=== PATIENT | female | born 1965 | race Caucasian/White ===

== ENCOUNTER 2021-10-12 21:29 | Inpatient (IN) | payer OTHER, MEDICAID ==
[~2021-10-12] VITALS: Ht 157.5 cm; Wt 57.4 kg
[~2021-10-12 21:29] MED LIST: ACET325T53 PO; ALPHAGAN1 OP; BISA-79 RC; CARB15DR OP; CEL20 PO; CHLO1LIQ2 MC; DORZ10DR10 EACH EYE; HAL5 PO; INSU100I26 SQ; LIP40 PO; LISI10TA29 PO; MELA3TAB41 PO; ONDA4TAB5 PO; SSREG SUBCUT; VITS42.53 TP; XALEYE OP
[2021-10-12] MEDS ORDERED: NACL 0.9% 1,000 ML IV ONE ×2 (21:45→22:45)
[2021-10-12 22:00] VITALS: BP_SYST 160
[2021-10-12 22:12] LABS: HEMATOCRIT 36.7 % (36-48); HEMOGLOBIN 12.1 g/dL (12.0-16.0); MEAN CORPUSCULAR HEMOGLOBIN 30 pg (27-31); MEAN CORPUSCULAR HGB CONC 33 % (32-36); MEAN CORPUSCULAR VOLUME 92 fL (79.0-98.0); PLATELET COUNT (AUTO) 290 K/uL (130-430); RED BLOOD CELL COUNT(AUTO) 3.99 MIL/uL (4.2-6.2); RED CELL DISTRIBUTION WIDTH 14.8 % (9.0-15.0); WHITE BLOOD COUNT (AUTO) 18.5 K/uL (4.8-10.8)
[2021-10-12 22:13] LABS: CALCIUM 9.7 mg/dL (8.4-11.0); CREATININE 1.07 mg/dL (0.55-1.30); POTASSIUM 4.1 mmol/L (3.5-5.1)
[2021-10-12 22:19] LABS: ALBUMIN 3.1 g/dL (3.4-4.8)
[2021-10-12] MEDS ORDERED: VANCOMYCIN HCL 1,000 MG in NS 250 ML IV ONE (22:45)
[2021-10-12 22:47] LABS: TOTAL BILIRUBIN 0.3 mg/dL (0.0-1.0)
[2021-10-12 23:10] LABS: BAND % (MANUAL) 20 % (0-6); BASOPHILS % (MANUAL) 0 % (0-2); EOSINOPHILS % (MANUAL) 0 % (0-7); LYMPHOCYTES % (MANUAL) 2 % (20-46); MONOCYTES % (MANUAL) 7 % (0-11)
[2021-10-12] MEDS ORDERED: VANCOMYCIN HCL 1000 MG/VIAL IV ONE (23:24)
[2021-10-12 23:28] LABS: BILIRUBIN,URINE 1+ (NEGATIVE); BLOOD, URINE NEGATIVE (NEGATIVE); COLOR,URINE YELLOW (YELLOW); GLUCOSE,URINE TRACE (NEGATIVE); KETONES,URINE 1+ (NEGATIVE); LEUKOCYTE ESTERASE ,URINE NEGATIVE (NEGATIVE); NITRITE, URINE NEGATIVE (NEGATIVE); PH,URINE 5.5 (5.0-8.0); PROTEIN URINE TRACE (NEGATIVE)
[2021-10-12] MEDS ORDERED: DIPHENHYDRAMINE INJ 50 MG/ML VIAL IVP ONE (23:45)
[2021-10-12] MEDS ORDERED: HALOPERIDOL LACTATE 5 MG/ML VIAL IVP ONE (23:45)
[2021-10-13] LABS: CLARITY/URINE HAZY (CLEAR)
[2021-10-13 00:15] LABS: BACTERIA,URINE FEW /HPF (None Seen); MUCUS,URINE None Seen /LPF (None Seen); RBC,URINE 0-3 /HPF (0-3); WBC,URINE 0-3 /HPF (0-3)
[2021-10-13] MEDS ORDERED: LORazepam 2 MG/ML VIAL IVP ONE (00:15)
[2021-10-13] MEDS ORDERED: NACL 0.9% 1,000 ML IV SCH ×2 (00:30→02:00)
[2021-10-13] MEDS ORDERED: cefTRIAXone 1 GM IVPB PREMIX 50 ML IV SCH (00:30)
[2021-10-13] MEDS ORDERED: PIOG15TA8 PO (00:31)
[2021-10-13] MEDS ORDERED: ASCO500T20 PO (00:31)
[2021-10-13] MEDS ORDERED: METF-518 PO (00:42)
[2021-10-13] MEDS ORDERED: LITH150C PO (00:43)
[2021-10-13] MEDS ORDERED: LIP80 PO (00:44)
[2021-10-13] MEDS ORDERED: VALP250S3 PO (00:46)
[2021-10-13] MEDS ORDERED: DEXT15LI PO (00:49)
[2021-10-13] MEDS ORDERED: LORA-258 PO (00:58)
[2021-10-13] MEDS ORDERED: BISA10SU61 RC (00:58)
[2021-10-13] MEDS ORDERED: POLY17PO4 PO (01:00)
[2021-10-13] MEDS ORDERED: CALC-939 PO (01:00)
[2021-10-13] MEDS ORDERED: PROC25SU2 RC (01:01)
[2021-10-13] MEDS ORDERED: METO-290 PO (01:06)
[2021-10-13] MEDS ORDERED: DOCU-156 PO (01:07)
[2021-10-13] MEDS ORDERED: MELA10TA2 PO (01:09)
[2021-10-13] MEDS ORDERED: FENO145T24 PO (01:13)
[2021-10-13] MEDS ORDERED: ZIPRASIDONE HCL 20 MG CAPSULE (GEODON) PO ONE (01:15)
[2021-10-13] MEDS ORDERED: DORZ1DRO7 OP (01:15)
[2021-10-13] MEDS ORDERED: QUET200T PO (01:16)
[2021-10-13] MEDS ORDERED: HAL5 PO (01:17)
[2021-10-13] MEDS ORDERED: CEL20 PO (01:18)
[2021-10-13] MEDS ORDERED: INSU100I26 SQ (01:19)
[2021-10-13] MEDS ORDERED: CHOL500013 PO (01:21)
[2021-10-13] MEDS ORDERED: SSREG SUBCUT (01:25)
[2021-10-13] MEDS ORDERED: HALOPERIDOL LACTATE 5 MG/ML VIAL ONE (02:10)
[2021-10-13] MEDS ORDERED: HALOPERIDOL LACTATE 5 MG/ML VIAL IVP ONE (02:15)
[2021-10-13] MEDS ORDERED: DIPHENHYDRAMINE INJ 50 MG/ML VIAL IVP ONE (02:15)
[2021-10-13] MEDS ORDERED: DIPHENHYDRAMINE INJ 50 MG/ML VIAL ONE (02:20)
[2021-10-13] MEDS: LORazepam 2 MG/ML VIAL IVP PRN ×4 (03:31→23:50)
[2021-10-13 04:01] VITALS: BP_SYST 137
[2021-10-13] MEDS ORDERED: PIPERACILLIN/TAZOBACTAM 3.375 GM/VIAL (ZOSYN) IV ONE (04:39)
[2021-10-13] MEDS: PIPERACILLIN/TAZO 3.375/DEX-IS 50 ML IV SCH ×3 (05:40→23:21)
[2021-10-13 08:00] VITALS: BP_SYST 125
[2021-10-13 12:32] VITALS: BP_SYST 150
[2021-10-13] MEDS: VANCOMYCIN HCL 1,000 MG in NS 250 ML IV SCH (12:48)
[2021-10-13 16:15] VITALS: BP_SYST 143
[2021-10-13] MEDS: D5NS 1,000 ML IV SCH (19:37)
[2021-10-13 20:00] VITALS: BP_SYST 135
[2021-10-13] MEDS: VALPROIC ACID ORAL SYRUP 250 MG/5 ML UDC PO SCH (22:15)
[2021-10-13] MEDS: HALOPERIDOL 5 MG TABLET (HALDOL) PO SCH (23:21)
[2021-10-13] MEDS: INSULIN REGULAR, HUMAN 100 UNITS/ML, 10 ML VIAL (humuLIN R) SUBCUT PRN (23:40)
[2021-10-14] VITALS: BP_SYST 142
[2021-10-14] MEDS: LORazepam 2 MG/ML VIAL IVP PRN (03:47)
[2021-10-14] MEDS: INSULIN REGULAR, HUMAN 100 UNITS/ML, 10 ML VIAL (humuLIN R) SUBCUT PRN ×3 (05:58→17:21)
[2021-10-14] MEDS: PIPERACILLIN/TAZO 3.375/DEX-IS 50 ML IV SCH ×3 (06:24→22:30)
[2021-10-14 08:00] VITALS: BP_SYST 142
[2021-10-14 08:14] LABS: BASOPHILS % (AUTO) 0.2 % (0.0-2.0); HEMATOCRIT 33.7 % (36-48); LYMPHOCYTES % (AUTO) 7.2 % (20.5-51.5); MEAN CORPUSCULAR HEMOGLOBIN 30 pg (27-31); MEAN CORPUSCULAR HGB CONC 33 % (32-36); MEAN CORPUSCULAR VOLUME 92 fL (79.0-98.0); MONOCYTES # (AUTO) 1.1 K/uL (0.0-1.0); MONOCYTES % (AUTO) 7.8 % (1.7-9.3); NEUTROPHILS # (AUTO) 11.7 K/uL (1.8-7.7); NEUTROPHILS % (AUTO) 84.8 % (40.0-70.0); PLATELET COUNT (AUTO) 231 K/uL (130-430); RED BLOOD CELL COUNT(AUTO) 3.68 MIL/uL (4.2-6.2); WHITE BLOOD COUNT (AUTO) 13.8 K/uL (4.8-10.8)
[2021-10-14 08:19] LABS: ALBUMIN 2.4 g/dL (3.4-4.8); CALCIUM 7.9 mg/dL (8.4-11.0); CREATININE 0.67 mg/dL (0.55-1.30); PHOSPHORUS 1.9 mg/dL (2.7-4.5); TOTAL BILIRUBIN 0.3 mg/dL (0.0-1.0)
[2021-10-14] MEDS: D5NS 1,000 ML IV SCH (08:20)
[2021-10-14 08:37] LABS: THYROID STIMULATING HORMONE 1.96 uIu/mL (0.34-4.82)
[2021-10-14] MEDS: HALOPERIDOL 5 MG TABLET (HALDOL) PO SCH ×2 (08:50→22:28)
[2021-10-14] MEDS: LISINOPRIL 10 MG TABLET (PRINIVIL) PO SCH (08:53)
[2021-10-14] MEDS: POLYETHYLENE GLYCOL 3350, 17 GM/ POWD.PACK PO SCH (09:00)
[2021-10-14] MEDS: VALPROIC ACID ORAL SYRUP 250 MG/5 ML UDC PO SCH ×2 (09:00→22:27)
[2021-10-14] MEDS: LITHIUM CARBONATE 150 MG CAPSULE PO SCH ×2 (09:00→22:27)
[2021-10-14] MEDS ORDERED: CITALOPRAM HYDROBROMIDE 20 MG TABLET PO SCH (09:00)
[2021-10-14] MEDS: ASCORBIC ACID 500 MG TABLET PO SCH (09:00)
[2021-10-14] MEDS: CALCIUM CARBONATE/VITAMIN D3 1 TAB TABLET PO SCH ×2 (09:00→22:29)
[2021-10-14] MEDS: VANCOMYCIN HCL 1,000 MG in NS 250 ML IV SCH (12:00)
[2021-10-14 12:32] VITALS: BP_SYST 161
[2021-10-14] MEDS: ALBUTEROL SULFATE 0.083% 2.5 MG/3 ML VIAL.NEB INH PRN (14:31)
[2021-10-14] MEDS ORDERED: K PHOS 30 MM in NS 250 ML IV ONE (14:45)
[2021-10-14 16:16] VITALS: BP_SYST 161
[2021-10-14 17:04] VITALS: BP_SYST 128
[2021-10-14 20:00] VITALS: BP_SYST 152
[2021-10-14] MEDS: QUEtiapine FUMARATE 100 MG TABLET PO SCH (22:28)
[2021-10-14] MEDS: ATORVASTATIN 20 MG TABLET PO SCH (22:28)
[2021-10-14] MEDS: LATANOPROST 2.5 ML DROPS (XALATAN) OP SCH (22:30)
[2021-10-15] MEDS ORDERED: K PHOS 30 MM in NS 250 ML IV ONE ×2
[2021-10-15] MEDS: BISACODYL 10 MG/SUPPOSITORY RC PRN (00:13)
[2021-10-15] MEDS: INSULIN REGULAR, HUMAN 100 UNITS/ML, 10 ML VIAL (humuLIN R) SUBCUT PRN ×5 (00:41→23:51)
[2021-10-15] MEDS: ACETAMINOPHEN 325 MG TABLET PO SCH (00:55)
[2021-10-15 02:11] VITALS: BP_SYST 105
[2021-10-15] MEDS: D5NS 1,000 ML IV SCH (04:20)
[2021-10-15] MEDS: PIPERACILLIN/TAZO 3.375/DEX-IS 50 ML IV SCH ×3 (05:54→21:09)
[2021-10-15 07:36] LABS: BASOPHILS % (AUTO) 0.3 % (0.0-2.0); EOSINOPHILS # (AUTO) 0.1 K/uL (0.0-0.4); EOSINOPHILS % (AUTO) 1.4 % (0.0-4.0); HEMATOCRIT 30.6 % (36-48); HEMOGLOBIN 10.2 g/dL (12.0-16.0); LYMPHOCYTES # (AUTO) 1.2 K/uL (1.0-5.5); LYMPHOCYTES % (AUTO) 14.4 % (20.5-51.5); MEAN CORPUSCULAR HEMOGLOBIN 30 pg (27-31); MEAN CORPUSCULAR HGB CONC 33 % (32-36); MEAN CORPUSCULAR VOLUME 90 fL (79.0-98.0); MONOCYTES # (AUTO) 0.8 K/uL (0.0-1.0); MONOCYTES % (AUTO) 9.5 % (1.7-9.3); NEUTROPHILS # (AUTO) 6.3 K/uL (1.8-7.7); NEUTROPHILS % (AUTO) 74.4 % (40.0-70.0); PLATELET COUNT (AUTO) 214 K/uL (130-430); WHITE BLOOD COUNT (AUTO) 8.4 K/uL (4.8-10.8)
[2021-10-15 08:00] VITALS: BP_SYST 117
[2021-10-15 08:06] LABS: CORTISOL (SERUM) 21.5 ug/dL (.)
[2021-10-15] MEDS: LISINOPRIL 10 MG TABLET (PRINIVIL) PO SCH (08:33)
[2021-10-15] MEDS: ASCORBIC ACID 500 MG TABLET PO SCH (08:34)
[2021-10-15] MEDS: VALPROIC ACID ORAL SYRUP 250 MG/5 ML UDC PO SCH ×2 (08:34→21:08)
[2021-10-15] MEDS: HALOPERIDOL 5 MG TABLET (HALDOL) PO SCH (08:34)
[2021-10-15] MEDS: LITHIUM CARBONATE 150 MG CAPSULE PO SCH (08:34)
[2021-10-15] MEDS: CHOLECALCIFEROL (VITAMIN D3) 5,000 UNIT TABLET PO SCH (08:34)
[2021-10-15] MEDS: CALCIUM CARBONATE/VITAMIN D3 1 TAB TABLET PO SCH ×2 (08:35→21:10)
[2021-10-15] MEDS: LORazepam 2 MG/ML VIAL IVP PRN ×4 (08:49→18:31)
[2021-10-15 08:51] LABS: CALCIUM 8.7 mg/dL (8.4-11.0); CREATININE 0.55 mg/dL (0.55-1.30); PHOSPHORUS 3.7 mg/dL (2.7-4.5); POTASSIUM 3.7 mmol/L (3.5-5.1)
[2021-10-15] MEDS: POLYETHYLENE GLYCOL 3350, 17 GM/ POWD.PACK PO SCH (08:52)
[2021-10-15 11:51] VITALS: BP_SYST 112
[2021-10-15 12:05] LABS: HEMOGLOBIN A1C 6.8 % (4.8-5.6)
[2021-10-15] MEDS: VANCOMYCIN HCL 1,000 MG in NS 250 ML IV SCH (12:24)
[2021-10-15 16:02] LABS: LITHIUM 0.22 mEq/L (0.50-1.0)
[2021-10-15 16:45] VITALS: BP_SYST 136
[2021-10-15 20:20] VITALS: BP_SYST 146
[2021-10-15] MEDS ORDERED: HALOPERIDOL 5 MG TABLET (HALDOL) PO SCH (21:00)
[2021-10-15] MEDS: LATANOPROST 2.5 ML DROPS (XALATAN) OP SCH (21:00)
[2021-10-15] MEDS: QUEtiapine FUMARATE 100 MG TABLET PO SCH (21:09)
[2021-10-15] MEDS: ATORVASTATIN 20 MG TABLET PO SCH (21:10)
[2021-10-16] VITALS (8 sets, daily range): BP systolic 125–191
[2021-10-16] MEDS: D5NS 1,000 ML IV SCH (05:20)
[2021-10-16] MEDS: INSULIN REGULAR, HUMAN 100 UNITS/ML, 10 ML VIAL (humuLIN R) SUBCUT PRN ×4 (05:31→23:53)
[2021-10-16] MEDS: LORazepam 2 MG/ML VIAL IVP PRN ×4 (06:35→22:39)
[2021-10-16 07:06] LABS: BASOPHILS % (AUTO) 0.5 % (0.0-2.0); EOSINOPHILS # (AUTO) 0.2 K/uL (0.0-0.4); EOSINOPHILS % (AUTO) 2.1 % (0.0-4.0); HEMATOCRIT 29.6 % (36-48); HEMOGLOBIN 9.9 g/dL (12.0-16.0); LYMPHOCYTES # (AUTO) 1.3 K/uL (1.0-5.5); LYMPHOCYTES % (AUTO) 14.6 % (20.5-51.5); MEAN CORPUSCULAR HEMOGLOBIN 30 pg (27-31); MEAN CORPUSCULAR HGB CONC 33 % (32-36); MEAN CORPUSCULAR VOLUME 90 fL (79.0-98.0); MONOCYTES # (AUTO) 0.8 K/uL (0.0-1.0); MONOCYTES % (AUTO) 9.4 % (1.7-9.3); NEUTROPHILS # (AUTO) 6.4 K/uL (1.8-7.7); NEUTROPHILS % (AUTO) 73.4 % (40.0-70.0); PLATELET COUNT (AUTO) 261 K/uL (130-430); RED BLOOD CELL COUNT(AUTO) 3.27 MIL/uL (4.2-6.2); RED CELL DISTRIBUTION WIDTH 15.3 % (9.0-15.0); WHITE BLOOD COUNT (AUTO) 8.8 K/uL (4.8-10.8)
[2021-10-16 08:38] LABS: CALCIUM 8.8 mg/dL (8.4-11.0); CREATININE 0.55 mg/dL (0.55-1.30); POTASSIUM 3.3 mmol/L (3.5-5.1)
[2021-10-16] MEDS: POLYETHYLENE GLYCOL 3350, 17 GM/ POWD.PACK PO SCH (10:10)
[2021-10-16] MEDS: CALCIUM CARBONATE/VITAMIN D3 1 TAB TABLET PO SCH ×2 (10:11→20:31)
[2021-10-16] MEDS: VALPROIC ACID ORAL SYRUP 250 MG/5 ML UDC PO SCH ×2 (10:11→20:30)
[2021-10-16] MEDS: ASCORBIC ACID 500 MG TABLET PO SCH (10:11)
[2021-10-16] MEDS: LISINOPRIL 10 MG TABLET (PRINIVIL) PO SCH (10:13)
[2021-10-16] MEDS ORDERED: POTASSIUM CHLORIDE 20 MEQ TAB.PRT.SR PO ONE (12:30)
[2021-10-16] MEDS: VANCOMYCIN HCL 1,000 MG in NS 250 ML IV SCH (13:22)
[2021-10-16] MEDS: cloNIDine HCL 0.1 MG TABLET PO PRN ×2 (18:37→22:36)
[2021-10-16] MEDS: ATORVASTATIN 20 MG TABLET PO SCH (20:31)
[2021-10-16] MEDS: LATANOPROST 2.5 ML DROPS (XALATAN) OP SCH (21:00)
[2021-10-16] MEDS: hydrALAZINE HCL 20 MG/ML VIAL IVP PRN (23:42)
[2021-10-17] VITALS (33 sets, daily range): BP systolic 98–222
[2021-10-17] MEDS: ALBUTEROL SULFATE 0.083% 2.5 MG/3 ML VIAL.NEB INH PRN ×2 (01:35→01:37)
[2021-10-17] MEDS: hydrALAZINE HCL 20 MG/ML VIAL IVP PRN (04:22)
[2021-10-17] MEDS: D5NS 1,000 ML IV SCH ×2 (04:40→09:22)
[2021-10-17] MEDS ORDERED: LORazepam 2 MG/ML VIAL IVP PRN (05:00)
[2021-10-17] MEDS: PROPOFOL DRIP 100 ML IV PRN ×2 (05:41→12:18)
[2021-10-17 06:04] LABS: BASOPHILS % (AUTO) 0.3 % (0.0-2.0); EOSINOPHILS # (AUTO) 0.1 K/uL (0.0-0.4); EOSINOPHILS % (AUTO) 0.4 % (0.0-4.0); HEMOGLOBIN 11.6 g/dL (12.0-16.0); LYMPHOCYTES # (AUTO) 0.7 K/uL (1.0-5.5); LYMPHOCYTES % (AUTO) 5.2 % (20.5-51.5); MEAN CORPUSCULAR HEMOGLOBIN 30 pg (27-31); MEAN CORPUSCULAR HGB CONC 33 % (32-36); MEAN CORPUSCULAR VOLUME 90 fL (79.0-98.0); MONOCYTES # (AUTO) 0.8 K/uL (0.0-1.0); MONOCYTES % (AUTO) 5.8 % (1.7-9.3); NEUTROPHILS % (AUTO) 88.3 % (40.0-70.0); PLATELET COUNT (AUTO) 372 K/uL (130-430); RED BLOOD CELL COUNT(AUTO) 3.89 MIL/uL (4.2-6.2); RED CELL DISTRIBUTION WIDTH 15.5 % (9.0-15.0); WHITE BLOOD COUNT (AUTO) 13.6 K/uL (4.8-10.8)
[2021-10-17 06:33] LABS: CALCIUM 9.3 mg/dL (8.4-11.0); CREATININE 0.65 mg/dL (0.55-1.30); POTASSIUM 3.9 mmol/L (3.5-5.1)
[2021-10-17] MEDS: INSULIN REGULAR, HUMAN 100 UNITS/ML, 10 ML VIAL (humuLIN R) SUBCUT PRN ×3 (06:34→17:53)
[2021-10-17] MEDS ORDERED: HEPARIN SODIUM,PORCINE 5,000 UNITS/ML VIAL ONE ×2 (06:35→20:07)
[2021-10-17] MEDS: HEPARIN SODIUM,PORCINE 5,000 UNITS/ML VIAL SUBCUT SCH ×2 (06:35→20:12)
[2021-10-17] MEDS: VALPROIC ACID ORAL SYRUP 250 MG/5 ML UDC PO SCH ×2 (09:09→20:09)
[2021-10-17] MEDS: POLYETHYLENE GLYCOL 3350, 17 GM/ POWD.PACK PO SCH (09:09)
[2021-10-17] MEDS: LISINOPRIL 10 MG TABLET (PRINIVIL) PO SCH (09:10)
[2021-10-17] MEDS: ASCORBIC ACID 500 MG TABLET PO SCH (09:16)
[2021-10-17] MEDS ORDERED: PANTOPRAZOLE SODIUM 40 MG/VIAL (PROTONIX) IVP ONE (10:30)
[2021-10-17] MEDS: CALCIUM CARBONATE/VITAMIN D3 1 TAB TABLET PO SCH ×2 (10:47→20:10)
[2021-10-17] MEDS: VANCOMYCIN HCL 1,000 MG in NS 250 ML IV SCH (12:06)
[2021-10-17] MEDS ORDERED: PIPERACILLIN/TAZO 4.5GM/DEX-IS 100 ML IV ONE (15:00)
[2021-10-17] MEDS: ACETAMINOPHEN 325 MG TABLET PO SCH (15:22)
[2021-10-17] MEDS: ATORVASTATIN 20 MG TABLET PO SCH (20:10)
[2021-10-17] MEDS: LATANOPROST 2.5 ML DROPS (XALATAN) OP SCH (20:14)
[2021-10-17] MEDS: PIPERACILLIN/TAZO 4.5GM/DEX-IS 100 ML IV SCH (21:36)
[2021-10-18] VITALS (29 sets, daily range): BP systolic 126–176
[2021-10-18] MEDS: INSULIN REGULAR, HUMAN 100 UNITS/ML, 10 ML VIAL (humuLIN R) SUBCUT PRN ×4 (00:25→18:38)
[2021-10-18] MEDS: PROPOFOL DRIP 100 ML IV PRN ×4 (04:14→18:15)
[2021-10-18] MEDS: PIPERACILLIN/TAZO 4.5GM/DEX-IS 100 ML IV SCH ×3 (05:36→21:32)
[2021-10-18 07:37] LABS: ALBUMIN 1.7 g/dL (3.4-4.8); CALCIUM 9.8 mg/dL (8.4-11.0); CREATININE 0.62 mg/dL (0.55-1.30); POTASSIUM 3.1 mmol/L (3.5-5.1); TOTAL BILIRUBIN 0.2 mg/dL (0.0-1.0)
[2021-10-18 07:43] LABS: BASOPHILS # (AUTO) 0.1 K/uL (0.0-0.2); BASOPHILS % (AUTO) 0.7 % (0.0-2.0); EOSINOPHILS # (AUTO) 0.2 K/uL (0.0-0.4); EOSINOPHILS % (AUTO) 2.2 % (0.0-4.0); HEMATOCRIT 29.4 % (36-48); HEMOGLOBIN 9.8 g/dL (12.0-16.0); LYMPHOCYTES # (AUTO) 2.2 K/uL (1.0-5.5); LYMPHOCYTES % (AUTO) 21.3 % (20.5-51.5); MEAN CORPUSCULAR HEMOGLOBIN 30 pg (27-31); MEAN CORPUSCULAR HGB CONC 33 % (32-36); MEAN CORPUSCULAR VOLUME 91 fL (79.0-98.0); MONOCYTES # (AUTO) 0.9 K/uL (0.0-1.0); MONOCYTES % (AUTO) 8.7 % (1.7-9.3); NEUTROPHILS # (AUTO) 6.8 K/uL (1.8-7.7); NEUTROPHILS % (AUTO) 67.1 % (40.0-70.0); PLATELET COUNT (AUTO) 407 K/uL (130-430); RED BLOOD CELL COUNT(AUTO) 3.24 MIL/uL (4.2-6.2); RED CELL DISTRIBUTION WIDTH 15.7 % (9.0-15.0)
[2021-10-18] MEDS: POLYETHYLENE GLYCOL 3350, 17 GM/ POWD.PACK PO SCH (08:37)
[2021-10-18] MEDS: PANTOPRAZOLE SODIUM 40 MG/VIAL (PROTONIX) IVP SCH (08:37)
[2021-10-18] MEDS: VALPROIC ACID ORAL SYRUP 250 MG/5 ML UDC PO SCH ×2 (08:37→22:22)
[2021-10-18] MEDS: ASCORBIC ACID 500 MG TABLET PO SCH (08:38)
[2021-10-18] MEDS: CALCIUM CARBONATE/VITAMIN D3 1 TAB TABLET PO SCH (08:38)
[2021-10-18] MEDS: LISINOPRIL 10 MG TABLET (PRINIVIL) PO SCH (08:39)
[2021-10-18] MEDS ORDERED: POTASSIUM CHLORIDE 20 MEQ TAB.PRT.SR NG ONE (08:45)
[2021-10-18] MEDS: HEPARIN SODIUM,PORCINE 5,000 UNITS/ML VIAL SUBCUT SCH (08:58)
[2021-10-18 09:32] LABS: WHITE BLOOD COUNT (AUTO) 10.1 K/uL (4.8-10.8)
[2021-10-18] MEDS: VANCOMYCIN HCL 1,000 MG in NS 250 ML IV SCH (11:07)
[2021-10-18] MEDS: ALBUTEROL SULFATE 0.083% 2.5 MG/3 ML VIAL.NEB INH PRN (12:04)
[2021-10-18] MEDS: PEG 400/HYPROMELLOSE/GLYCERIN 15 ML DROPS OP SCH ×3 (13:49→22:22)
[2021-10-18] MEDS: VANCOMYCIN HCL 750 MG in NS 250 ML IV SCH (17:23)
[2021-10-18] MEDS: hydrALAZINE HCL 20 MG/ML VIAL IVP PRN ×2 (18:10→21:30)
[2021-10-18] MEDS: DOCUSATE SODIUM 100 MG CAPSULE PO PRN (21:33)
[2021-10-19] VITALS (29 sets, daily range): BP systolic 126–196
[2021-10-19] MEDS: INSULIN REGULAR, HUMAN 100 UNITS/ML, 10 ML VIAL (humuLIN R) SUBCUT PRN ×5 (00:47→23:58)
[2021-10-19] MEDS: LATANOPROST 2.5 ML DROPS (XALATAN) OP SCH ×2 (00:54→20:13)
[2021-10-19] MEDS: CALCIUM CARBONATE/VITAMIN D3 1 TAB TABLET PO SCH ×3 (00:55→20:14)
[2021-10-19] MEDS: ATORVASTATIN 20 MG TABLET PO SCH ×2 (00:55→20:14)
[2021-10-19] MEDS: HEPARIN SODIUM,PORCINE 5,000 UNITS/ML VIAL SUBCUT SCH ×3 (00:56→21:17)
[2021-10-19] MEDS: PROPOFOL DRIP 100 ML IV PRN ×4 (03:45→23:42)
[2021-10-19] MEDS: VANCOMYCIN HCL 750 MG in NS 250 ML IV SCH ×2 (06:33→18:38)
[2021-10-19] MEDS: PIPERACILLIN/TAZO 4.5GM/DEX-IS 100 ML IV SCH ×3 (06:39→21:22)
[2021-10-19 06:57] LABS: BASOPHILS # (AUTO) 0.1 K/uL (0.0-0.2); EOSINOPHILS # (AUTO) 0.4 K/uL (0.0-0.4); EOSINOPHILS % (AUTO) 4.4 % (0.0-4.0); HEMATOCRIT 26.7 % (36-48); HEMOGLOBIN 9.1 g/dL (12.0-16.0); LYMPHOCYTES # (AUTO) 1.4 K/uL (1.0-5.5); LYMPHOCYTES % (AUTO) 15.7 % (20.5-51.5); MEAN CORPUSCULAR HEMOGLOBIN 31 pg (27-31); MEAN CORPUSCULAR HGB CONC 34 % (32-36); MEAN CORPUSCULAR VOLUME 91 fL (79.0-98.0); MONOCYTES # (AUTO) 0.7 K/uL (0.0-1.0); NEUTROPHILS # (AUTO) 6.2 K/uL (1.8-7.7); NEUTROPHILS % (AUTO) 70.9 % (40.0-70.0); PLATELET COUNT (AUTO) 412 K/uL (130-430); RED BLOOD CELL COUNT(AUTO) 2.93 MIL/uL (4.2-6.2); RED CELL DISTRIBUTION WIDTH 15.2 % (9.0-15.0); WHITE BLOOD COUNT (AUTO) 8.7 K/uL (4.8-10.8)
[2021-10-19 06:59] LABS: ALBUMIN 1.5 g/dL (3.4-4.8); CALCIUM 7.7 mg/dL (8.4-11.0); CREATININE 0.62 mg/dL (0.55-1.30); PHOSPHORUS 2.3 mg/dL (2.7-4.5); POTASSIUM 3.2 mmol/L (3.5-5.1); TOTAL BILIRUBIN 0.2 mg/dL (0.0-1.0)
[2021-10-19] MEDS: ASCORBIC ACID 500 MG TABLET PO SCH (08:53)
[2021-10-19] MEDS: PANTOPRAZOLE SODIUM 40 MG/VIAL (PROTONIX) IVP SCH (08:53)
[2021-10-19] MEDS: LISINOPRIL 10 MG TABLET (PRINIVIL) PO SCH (08:53)
[2021-10-19] MEDS: VALPROIC ACID ORAL SYRUP 250 MG/5 ML UDC PO SCH ×2 (08:56→20:14)
[2021-10-19] MEDS: POLYETHYLENE GLYCOL 3350, 17 GM/ POWD.PACK PO SCH (08:57)
[2021-10-19] MEDS: PEG 400/HYPROMELLOSE/GLYCERIN 15 ML DROPS OP SCH ×4 (12:32→20:13)
[2021-10-19] MEDS ORDERED: 0.45% NS 500 ML IV ONE (14:30)
[2021-10-19] MEDS ORDERED: POTASSIUM CHLORIDE 20 MEQ/PKT PACKET PO ONE (14:30)
[2021-10-19] MEDS: hydrALAZINE HCL 20 MG/ML VIAL IVP PRN (19:12)
[2021-10-19] MEDS ORDERED: INSULIN GLARGINE 100 UNITS/ML 10 ML VIAL SUBCUT SCH (21:00)
[2021-10-20] VITALS (37 sets, daily range): BP systolic 111–191
[2021-10-20] MEDS: VANCOMYCIN HCL 750 MG in NS 250 ML IV SCH (06:01)
[2021-10-20] MEDS: PIPERACILLIN/TAZO 4.5GM/DEX-IS 100 ML IV SCH ×3 (06:01→21:06)
[2021-10-20] MEDS: PROPOFOL DRIP 100 ML IV PRN ×4 (06:03→21:57)
[2021-10-20] MEDS: INSULIN REGULAR, HUMAN 100 UNITS/ML, 10 ML VIAL (humuLIN R) SUBCUT PRN ×4 (06:09→23:46)
[2021-10-20 07:13] LABS: BASOPHILS # (AUTO) 0.1 K/uL (0.0-0.2); BASOPHILS % (AUTO) 1.1 % (0.0-2.0); EOSINOPHILS # (AUTO) 0.5 K/uL (0.0-0.4); EOSINOPHILS % (AUTO) 4.5 % (0.0-4.0); HEMATOCRIT 29.2 % (36-48); HEMOGLOBIN 9.8 g/dL (12.0-16.0); LYMPHOCYTES # (AUTO) 2.4 K/uL (1.0-5.5); LYMPHOCYTES % (AUTO) 20.3 % (20.5-51.5); MEAN CORPUSCULAR HEMOGLOBIN 30 pg (27-31); MEAN CORPUSCULAR HGB CONC 33 % (32-36); MEAN CORPUSCULAR VOLUME 91 fL (79.0-98.0); MONOCYTES # (AUTO) 0.5 K/uL (0.0-1.0); MONOCYTES % (AUTO) 4.4 % (1.7-9.3); NEUTROPHILS # (AUTO) 8.3 K/uL (1.8-7.7); NEUTROPHILS % (AUTO) 69.7 % (40.0-70.0); PLATELET COUNT (AUTO) 516 K/uL (130-430); RED BLOOD CELL COUNT(AUTO) 3.21 MIL/uL (4.2-6.2); RED CELL DISTRIBUTION WIDTH 15.1 % (9.0-15.0)
[2021-10-20 07:23] LABS: CREATININE 0.46 mg/dL (0.55-1.30); POTASSIUM 3.1 mmol/L (3.5-5.1)
[2021-10-20] MEDS: ASCORBIC ACID 500 MG TABLET PO SCH (08:18)
[2021-10-20] MEDS: PANTOPRAZOLE SODIUM 40 MG/VIAL (PROTONIX) IVP SCH (08:18)
[2021-10-20] MEDS: VALPROIC ACID ORAL SYRUP 250 MG/5 ML UDC PO SCH (08:18)
[2021-10-20] MEDS: LISINOPRIL 10 MG TABLET (PRINIVIL) PO SCH (08:19)
[2021-10-20] MEDS: POLYETHYLENE GLYCOL 3350, 17 GM/ POWD.PACK PO SCH (08:22)
[2021-10-20] MEDS: HEPARIN SODIUM,PORCINE 5,000 UNITS/ML VIAL SUBCUT SCH ×2 (08:27→21:03)
[2021-10-20] MEDS: PEG 400/HYPROMELLOSE/GLYCERIN 15 ML DROPS OP SCH ×4 (08:31→21:01)
[2021-10-20] MEDS: CALCIUM CARBONATE/VITAMIN D3 1 TAB TABLET PO SCH ×2 (08:42→21:02)
[2021-10-20] MEDS ORDERED: KCL 40 mEq in 100 mL (PREMIX) 100 ML IV ONE (14:30)
[2021-10-20] MEDS: hydrALAZINE HCL 20 MG/ML VIAL IVP PRN (16:47)
[2021-10-20] MEDS ORDERED: METOPROLOL TARTRATE 25 MG TABLET PO ONE (19:45)
[2021-10-20] MEDS: VANCOMYCIN HCL 1 GM/NS PREMIX 250 ML IV SCH (20:00)
[2021-10-20] MEDS ORDERED: METOPROLOL TARTRATE 25 MG TABLET ONE (20:04)
[2021-10-20] MEDS: VALPROIC ACID ORAL SYRUP 250 MG/5 ML UDC GT SCH (21:01)
[2021-10-20] MEDS: LATANOPROST 2.5 ML DROPS (XALATAN) OP SCH (21:02)
[2021-10-20] MEDS: ATORVASTATIN 20 MG TABLET PO SCH (21:02)
[2021-10-20] MEDS: INSULIN GLARGINE 100 UNITS/ML 10 ML VIAL SUBCUT SCH (21:05)
[2021-10-21] VITALS (32 sets, daily range): BP systolic 93–167
[2021-10-21] MEDS: PROPOFOL DRIP 100 ML IV PRN ×3 (04:17→13:02)
[2021-10-21] MEDS: VANCOMYCIN HCL 1 GM/NS PREMIX 250 ML IV SCH ×2 (05:54→17:33)
[2021-10-21] MEDS: PIPERACILLIN/TAZO 4.5GM/DEX-IS 100 ML IV SCH ×3 (05:54→22:35)
[2021-10-21] MEDS: INSULIN REGULAR, HUMAN 100 UNITS/ML, 10 ML VIAL (humuLIN R) SUBCUT PRN ×2 (05:58→17:52)
[2021-10-21 06:47] LABS: CALCIUM 8.1 mg/dL (8.4-11.0); CREATININE 0.55 mg/dL (0.55-1.30); POTASSIUM 3.7 mmol/L (3.5-5.1)
[2021-10-21 06:59] LABS: BASOPHILS # (AUTO) 0.1 K/uL (0.0-0.2); BASOPHILS % (AUTO) 0.8 % (0.0-2.0); EOSINOPHILS # (AUTO) 0.4 K/uL (0.0-0.4); EOSINOPHILS % (AUTO) 2.8 % (0.0-4.0); HEMATOCRIT 29.3 % (36-48); HEMOGLOBIN 9.5 g/dL (12.0-16.0); LYMPHOCYTES # (AUTO) 1.6 K/uL (1.0-5.5); MEAN CORPUSCULAR HEMOGLOBIN 30 pg (27-31); MEAN CORPUSCULAR HGB CONC 33 % (32-36); MEAN CORPUSCULAR VOLUME 92 fL (79.0-98.0); MONOCYTES # (AUTO) 0.6 K/uL (0.0-1.0); MONOCYTES % (AUTO) 4.5 % (1.7-9.3); NEUTROPHILS # (AUTO) 9.9 K/uL (1.8-7.7); PLATELET COUNT (AUTO) 535 K/uL (130-430); RED BLOOD CELL COUNT(AUTO) 3.18 MIL/uL (4.2-6.2); RED CELL DISTRIBUTION WIDTH 15.2 % (9.0-15.0); WHITE BLOOD COUNT (AUTO) 12.6 K/uL (4.8-10.8)
[2021-10-21] MEDS: PANTOPRAZOLE SODIUM 40 MG/VIAL (PROTONIX) IVP SCH (09:08)
[2021-10-21] MEDS: HALOPERIDOL 5 MG TABLET (HALDOL) PO PRN (09:08)
[2021-10-21] MEDS: ASCORBIC ACID 500 MG TABLET PO SCH (09:08)
[2021-10-21] MEDS: LISINOPRIL 10 MG TABLET (PRINIVIL) PO SCH (09:08)
[2021-10-21] MEDS: DOCUSATE SODIUM 100 MG CAPSULE PO PRN (09:09)
[2021-10-21] MEDS: POLYETHYLENE GLYCOL 3350, 17 GM/ POWD.PACK PO SCH (09:09)
[2021-10-21] MEDS: POTASSIUM CHLORIDE 20 MEQ/PKT PACKET PO SCH (09:10)
[2021-10-21] MEDS: VALPROIC ACID ORAL SYRUP 250 MG/5 ML UDC GT SCH ×2 (10:12→21:31)
[2021-10-21] MEDS: CALCIUM CARBONATE/VITAMIN D3 1 TAB TABLET PO SCH ×2 (10:13→21:30)
[2021-10-21] MEDS: PEG 400/HYPROMELLOSE/GLYCERIN 15 ML DROPS OP SCH ×4 (11:00→21:54)
[2021-10-21] MEDS: HEPARIN SODIUM,PORCINE 5,000 UNITS/ML VIAL SUBCUT SCH ×2 (12:28→21:41)
[2021-10-21 13:19] LABS: NEUTROPHILS % (AUTO) 78.9 % (40.0-70.0)
[2021-10-21] MEDS: ATORVASTATIN 20 MG TABLET PO SCH (21:34)
[2021-10-21] MEDS: LATANOPROST 2.5 ML DROPS (XALATAN) OP SCH (21:54)
[2021-10-21] MEDS: INSULIN GLARGINE 100 UNITS/ML 10 ML VIAL SUBCUT SCH (21:56)
[2021-10-22] VITALS (36 sets, daily range): BP systolic 110–168
[2021-10-22] MEDS: INSULIN REGULAR, HUMAN 100 UNITS/ML, 10 ML VIAL (humuLIN R) SUBCUT PRN ×5 (01:30→23:26)
[2021-10-22] MEDS: PROPOFOL DRIP 100 ML IV PRN ×3 (02:33→15:28)
[2021-10-22] MEDS: VANCOMYCIN HCL 1 GM/NS PREMIX 250 ML IV SCH (06:14)
[2021-10-22] MEDS: PIPERACILLIN/TAZO 4.5GM/DEX-IS 100 ML IV SCH ×3 (06:15→20:48)
[2021-10-22 06:41] LABS: HEMATOCRIT 27.1 % (36-48); MEAN CORPUSCULAR HEMOGLOBIN 30 pg (27-31); MEAN CORPUSCULAR HGB CONC 33 % (32-36); MEAN CORPUSCULAR VOLUME 91 fL (79.0-98.0); PLATELET COUNT (AUTO) 464 K/uL (130-430); RED BLOOD CELL COUNT(AUTO) 2.98 MIL/uL (4.2-6.2); RED CELL DISTRIBUTION WIDTH 15.2 % (9.0-15.0); WHITE BLOOD COUNT (AUTO) 11.6 K/uL (4.8-10.8)
[2021-10-22 07:02] LABS: CALCIUM 8.5 mg/dL (8.4-11.0); CREATININE 0.49 mg/dL (0.55-1.30); POTASSIUM 4.3 mmol/L (3.5-5.1)
[2021-10-22] MEDS: VALPROIC ACID ORAL SYRUP 250 MG/5 ML UDC GT SCH ×2 (08:54→20:48)
[2021-10-22] MEDS: PANTOPRAZOLE SODIUM 40 MG/VIAL (PROTONIX) IVP SCH (08:54)
[2021-10-22] MEDS: CALCIUM CARBONATE/VITAMIN D3 1 TAB TABLET PO SCH ×2 (08:55→21:00)
[2021-10-22] MEDS: ASCORBIC ACID 500 MG TABLET PO SCH (08:55)
[2021-10-22] MEDS: PEG 400/HYPROMELLOSE/GLYCERIN 15 ML DROPS OP SCH ×4 (08:55→22:24)
[2021-10-22] MEDS: POTASSIUM CHLORIDE 20 MEQ/PKT PACKET PO SCH (08:55)
[2021-10-22] MEDS: POLYETHYLENE GLYCOL 3350, 17 GM/ POWD.PACK PO SCH (08:55)
[2021-10-22] MEDS: CHOLECALCIFEROL (VITAMIN D3) 5,000 UNIT TABLET PO SCH (08:55)
[2021-10-22] MEDS: LISINOPRIL 10 MG TABLET (PRINIVIL) PO SCH (08:55)
[2021-10-22] MEDS: HEPARIN SODIUM,PORCINE 5,000 UNITS/ML VIAL SUBCUT SCH ×2 (08:59→20:58)
[2021-10-22 12:11] LABS: BAND % (MANUAL) 4 % (0-6); BASOPHILS % (MANUAL) 0 % (0-2); EOSINOPHILS % (MANUAL) 1 % (0-7); LYMPHOCYTES % (MANUAL) 15 % (20-46); MONOCYTES % (MANUAL) 3 % (0-11)
[2021-10-22 12:12] LABS: METAMYELOCYTES % 4 % (0-0)
[2021-10-22] MEDS: VANCOMYCIN HCL 750 MG in NS 250 ML IV SCH ×2 (15:26→23:16)
[2021-10-22] MEDS: ATORVASTATIN 20 MG TABLET PO SCH (20:46)
[2021-10-22] MEDS: INSULIN GLARGINE 100 UNITS/ML 10 ML VIAL SUBCUT SCH (20:59)
[2021-10-22] MEDS ORDERED: PROPOFOL DRIP 100 ML IV ONE (21:18)
[2021-10-22] MEDS: LATANOPROST 2.5 ML DROPS (XALATAN) OP SCH (22:25)
[2021-10-23] VITALS (37 sets, daily range): BP systolic 90–178
[2021-10-23] MEDS: PROPOFOL DRIP 100 ML IV PRN ×3 (01:45→23:34)
[2021-10-23 05:48] LABS: BASOPHILS % (AUTO) 0.2 % (0.0-2.0); EOSINOPHILS # (AUTO) 0.2 K/uL (0.0-0.4); EOSINOPHILS % (AUTO) 1.3 % (0.0-4.0); HEMATOCRIT 29.2 % (36-48); HEMOGLOBIN 9.7 g/dL (12.0-16.0); LYMPHOCYTES # (AUTO) 1.6 K/uL (1.0-5.5); LYMPHOCYTES % (AUTO) 12.7 % (20.5-51.5); MEAN CORPUSCULAR HEMOGLOBIN 30 pg (27-31); MEAN CORPUSCULAR HGB CONC 33 % (32-36); MEAN CORPUSCULAR VOLUME 92 fL (79.0-98.0); MONOCYTES # (AUTO) 0.8 K/uL (0.0-1.0); MONOCYTES % (AUTO) 6.1 % (1.7-9.3); NEUTROPHILS # (AUTO) 9.8 K/uL (1.8-7.7); NEUTROPHILS % (AUTO) 79.7 % (40.0-70.0); PLATELET COUNT (AUTO) 483 K/uL (130-430); RED BLOOD CELL COUNT(AUTO) 3.17 MIL/uL (4.2-6.2); RED CELL DISTRIBUTION WIDTH 14.8 % (9.0-15.0); WHITE BLOOD COUNT (AUTO) 12.3 K/uL (4.8-10.8)
[2021-10-23 06:00] LABS: CALCIUM 8.8 mg/dL (8.4-11.0); CREATININE 0.53 mg/dL (0.55-1.30); POTASSIUM 4.2 mmol/L (3.5-5.1)
[2021-10-23] MEDS: PIPERACILLIN/TAZO 4.5GM/DEX-IS 100 ML IV SCH ×3 (06:45→21:06)
[2021-10-23] MEDS: INSULIN REGULAR, HUMAN 100 UNITS/ML, 10 ML VIAL (humuLIN R) SUBCUT PRN ×3 (06:48→23:55)
[2021-10-23] MEDS: VANCOMYCIN HCL 750 MG in NS 250 ML IV SCH ×2 (08:23→15:40)
[2021-10-23] MEDS: LISINOPRIL 10 MG TABLET (PRINIVIL) PO SCH (08:41)
[2021-10-23] MEDS: CALCIUM CARBONATE/VITAMIN D3 1 TAB TABLET PO SCH ×2 (08:41→21:01)
[2021-10-23] MEDS: POLYETHYLENE GLYCOL 3350, 17 GM/ POWD.PACK PO SCH (08:41)
[2021-10-23] MEDS: PANTOPRAZOLE SODIUM 40 MG/VIAL (PROTONIX) IVP SCH (08:41)
[2021-10-23] MEDS: PEG 400/HYPROMELLOSE/GLYCERIN 15 ML DROPS OP SCH ×4 (08:41→21:14)
[2021-10-23] MEDS: ASCORBIC ACID 500 MG TABLET PO SCH (08:41)
[2021-10-23] MEDS: POTASSIUM CHLORIDE 20 MEQ/PKT PACKET PO SCH (08:41)
[2021-10-23] MEDS: VALPROIC ACID ORAL SYRUP 250 MG/5 ML UDC GT SCH ×2 (08:41→21:00)
[2021-10-23] MEDS: HEPARIN SODIUM,PORCINE 5,000 UNITS/ML VIAL SUBCUT SCH ×2 (08:44→21:05)
[2021-10-23] MEDS ORDERED: INSULIN GLARGINE 100 UNITS/ML 10 ML VIAL SUBCUT SCH (21:00)
[2021-10-23] MEDS: ATORVASTATIN 20 MG TABLET PO SCH (21:01)
[2021-10-23] MEDS: LATANOPROST 2.5 ML DROPS (XALATAN) OP SCH ×2 (21:12→21:13)
[2021-10-24] VITALS (33 sets, daily range): BP systolic 116–172
[2021-10-24] MEDS: PROPOFOL DRIP 100 ML IV PRN ×4 (06:25→21:06)
[2021-10-24 06:30] LABS: HEMATOCRIT 28.1 % (36-48); HEMOGLOBIN 9.8 g/dL (12.0-16.0); MEAN CORPUSCULAR HEMOGLOBIN 32 pg (27-31); MEAN CORPUSCULAR HGB CONC 35 % (32-36); MEAN CORPUSCULAR VOLUME 91 fL (79.0-98.0); PLATELET COUNT (AUTO) 610 K/uL (130-430); RED BLOOD CELL COUNT(AUTO) 3.11 MIL/uL (4.2-6.2); RED CELL DISTRIBUTION WIDTH 15.1 % (9.0-15.0); WHITE BLOOD COUNT (AUTO) 13.3 K/uL (4.8-10.8)
[2021-10-24 06:34] LABS: CALCIUM 8.7 mg/dL (8.4-11.0); CREATININE 0.43 mg/dL (0.55-1.30); POTASSIUM 3.8 mmol/L (3.5-5.1)
[2021-10-24] MEDS: PIPERACILLIN/TAZO 4.5GM/DEX-IS 100 ML IV SCH ×3 (06:36→21:04)
[2021-10-24] MEDS: INSULIN REGULAR, HUMAN 100 UNITS/ML, 10 ML VIAL (humuLIN R) SUBCUT PRN ×5 (06:37→23:35)
[2021-10-24] MEDS: VANCOMYCIN HCL 750 MG in NS 250 ML IV SCH ×5 (08:39→23:22)
[2021-10-24] MEDS: CALCIUM CARBONATE/VITAMIN D3 1 TAB TABLET PO SCH ×2 (09:14→20:02)
[2021-10-24] MEDS: POTASSIUM CHLORIDE 20 MEQ/PKT PACKET PO SCH (09:15)
[2021-10-24] MEDS: VALPROIC ACID ORAL SYRUP 250 MG/5 ML UDC GT SCH ×2 (09:15→20:02)
[2021-10-24] MEDS: PANTOPRAZOLE SODIUM 40 MG/VIAL (PROTONIX) IVP SCH (09:16)
[2021-10-24] MEDS: POLYETHYLENE GLYCOL 3350, 17 GM/ POWD.PACK PO SCH (09:16)
[2021-10-24] MEDS: LISINOPRIL 10 MG TABLET (PRINIVIL) PO SCH (09:17)
[2021-10-24] MEDS: ASCORBIC ACID 500 MG TABLET PO SCH (09:17)
[2021-10-24] MEDS: HEPARIN SODIUM,PORCINE 5,000 UNITS/ML VIAL SUBCUT SCH ×2 (09:18→20:04)
[2021-10-24] MEDS: PEG 400/HYPROMELLOSE/GLYCERIN 15 ML DROPS OP SCH ×4 (09:24→20:07)
[2021-10-24 12:16] LABS: BAND % (MANUAL) 8 % (0-6); BASOPHILS % (MANUAL) 0 % (0-2); EOSINOPHILS % (MANUAL) 2 % (0-7); LYMPHOCYTES % (MANUAL) 14 % (20-46); METAMYELOCYTES % 2 % (0-0); MONOCYTES % (MANUAL) 3 % (0-11)
[2021-10-24] MEDS: ATORVASTATIN 20 MG TABLET PO SCH (20:03)
[2021-10-24] MEDS ORDERED: INSULIN GLARGINE 100 UNITS/ML 10 ML VIAL SUBCUT SCH (21:00)
[2021-10-25] VITALS (36 sets, daily range): BP systolic 102–152
[2021-10-25] MEDS: PROPOFOL DRIP 100 ML IV PRN ×3 (02:47→13:40)
[2021-10-25] MEDS: PIPERACILLIN/TAZO 4.5GM/DEX-IS 100 ML IV SCH ×3 (05:43→21:41)
[2021-10-25] MEDS: INSULIN REGULAR, HUMAN 100 UNITS/ML, 10 ML VIAL (humuLIN R) SUBCUT PRN ×3 (05:46→18:20)
[2021-10-25 06:55] LABS: BASOPHILS # (AUTO) 0.1 K/uL (0.0-0.2); BASOPHILS % (AUTO) 1.1 % (0.0-2.0); EOSINOPHILS # (AUTO) 0.2 K/uL (0.0-0.4); EOSINOPHILS % (AUTO) 1.3 % (0.0-4.0); HEMATOCRIT 31.3 % (36-48); HEMOGLOBIN 10.3 g/dL (12.0-16.0); LYMPHOCYTES # (AUTO) 2.4 K/uL (1.0-5.5); LYMPHOCYTES % (AUTO) 18.9 % (20.5-51.5); MEAN CORPUSCULAR HEMOGLOBIN 30 pg (27-31); MEAN CORPUSCULAR HGB CONC 33 % (32-36); MEAN CORPUSCULAR VOLUME 92 fL (79.0-98.0); MONOCYTES % (AUTO) 7.9 % (1.7-9.3); NEUTROPHILS # (AUTO) 9.1 K/uL (1.8-7.7); NEUTROPHILS % (AUTO) 70.8 % (40.0-70.0); PLATELET COUNT (AUTO) 528 K/uL (130-430); RED BLOOD CELL COUNT(AUTO) 3.41 MIL/uL (4.2-6.2); RED CELL DISTRIBUTION WIDTH 14.9 % (9.0-15.0); WHITE BLOOD COUNT (AUTO) 12.9 K/uL (4.8-10.8)
[2021-10-25] MEDS: VANCOMYCIN HCL 750 MG in NS 250 ML IV SCH ×2 (07:46→15:48)
[2021-10-25 08:17] LABS: CALCIUM 8.9 mg/dL (8.4-11.0); CREATININE 0.59 mg/dL (0.55-1.30); POTASSIUM 3.9 mmol/L (3.5-5.1)
[2021-10-25] MEDS: ASCORBIC ACID 500 MG TABLET PO SCH (08:30)
[2021-10-25] MEDS: HEPARIN SODIUM,PORCINE 5,000 UNITS/ML VIAL SUBCUT SCH ×2 (08:32→21:47)
[2021-10-25] MEDS: VALPROIC ACID ORAL SYRUP 250 MG/5 ML UDC GT SCH ×2 (08:32→22:13)
[2021-10-25] MEDS: LISINOPRIL 10 MG TABLET (PRINIVIL) PO SCH (08:33)
[2021-10-25] MEDS: CALCIUM CARBONATE/VITAMIN D3 1 TAB TABLET PO SCH ×2 (08:33→21:41)
[2021-10-25] MEDS: PANTOPRAZOLE SODIUM 40 MG/VIAL (PROTONIX) IVP SCH (08:34)
[2021-10-25] MEDS: POTASSIUM CHLORIDE 20 MEQ/PKT PACKET PO SCH (08:34)
[2021-10-25] MEDS: POLYETHYLENE GLYCOL 3350, 17 GM/ POWD.PACK PO SCH (08:34)
[2021-10-25] MEDS: PEG 400/HYPROMELLOSE/GLYCERIN 15 ML DROPS OP SCH ×4 (08:34→21:43)
[2021-10-25] MEDS ORDERED: INSULIN GLARGINE 100 UNITS/ML 10 ML VIAL SUBCUT SCH (21:00)
[2021-10-25] MEDS: LATANOPROST 2.5 ML DROPS (XALATAN) OP SCH (21:00)
[2021-10-25] MEDS: ATORVASTATIN 20 MG TABLET PO SCH (21:42)
[2021-10-25] MEDS ORDERED: VALPROIC ACID 250 MG CAPSULE (DEPAKENE) ONE (22:11)
[2021-10-26] VITALS (35 sets, daily range): BP systolic 114–170
[2021-10-26] MEDS: VANCOMYCIN HCL 750 MG in NS 250 ML IV SCH ×3 (00:18→15:48)
[2021-10-26] MEDS: INSULIN REGULAR, HUMAN 100 UNITS/ML, 10 ML VIAL (humuLIN R) SUBCUT PRN ×4 (00:20→18:08)
[2021-10-26] MEDS: PROPOFOL DRIP 100 ML IV PRN ×2 (01:10→14:10)
[2021-10-26] MEDS: PIPERACILLIN/TAZO 4.5GM/DEX-IS 100 ML IV SCH ×2 (05:48→14:41)
[2021-10-26 06:38] LABS: BASOPHILS # (AUTO) 0.1 K/uL (0.0-0.2); BASOPHILS % (AUTO) 1.1 % (0.0-2.0); EOSINOPHILS # (AUTO) 0.1 K/uL (0.0-0.4); EOSINOPHILS % (AUTO) 1.2 % (0.0-4.0); HEMATOCRIT 29.4 % (36-48); HEMOGLOBIN 9.9 g/dL (12.0-16.0); LYMPHOCYTES # (AUTO) 2.3 K/uL (1.0-5.5); LYMPHOCYTES % (AUTO) 19.7 % (20.5-51.5); MEAN CORPUSCULAR HEMOGLOBIN 31 pg (27-31); MEAN CORPUSCULAR HGB CONC 34 % (32-36); MEAN CORPUSCULAR VOLUME 91 fL (79.0-98.0); MONOCYTES % (AUTO) 8.9 % (1.7-9.3); NEUTROPHILS # (AUTO) 7.9 K/uL (1.8-7.7); NEUTROPHILS % (AUTO) 69.1 % (40.0-70.0); PLATELET COUNT (AUTO) 518 K/uL (130-430); RED BLOOD CELL COUNT(AUTO) 3.22 MIL/uL (4.2-6.2); RED CELL DISTRIBUTION WIDTH 14.9 % (9.0-15.0); WHITE BLOOD COUNT (AUTO) 11.4 K/uL (4.8-10.8)
[2021-10-26 07:30] LABS: CALCIUM 8.7 mg/dL (8.4-11.0); CREATININE 0.53 mg/dL (0.55-1.30); POTASSIUM 4.1 mmol/L (3.5-5.1)
[2021-10-26] MEDS: ASCORBIC ACID 500 MG TABLET PO SCH (09:11)
[2021-10-26] MEDS: PANTOPRAZOLE SODIUM 40 MG/VIAL (PROTONIX) IVP SCH (09:12)
[2021-10-26] MEDS: LISINOPRIL 10 MG TABLET (PRINIVIL) PO SCH (09:12)
[2021-10-26] MEDS: POLYETHYLENE GLYCOL 3350, 17 GM/ POWD.PACK PO SCH (09:14)
[2021-10-26] MEDS: POTASSIUM CHLORIDE 20 MEQ/PKT PACKET PO SCH (09:14)
[2021-10-26] MEDS: PEG 400/HYPROMELLOSE/GLYCERIN 15 ML DROPS OP SCH ×4 (09:14→21:05)
[2021-10-26] MEDS: HEPARIN SODIUM,PORCINE 5,000 UNITS/ML VIAL SUBCUT SCH ×2 (09:16→21:21)
[2021-10-26] MEDS: CALCIUM CARBONATE/VITAMIN D3 1 TAB TABLET PO SCH ×2 (09:17→21:06)
[2021-10-26] MEDS: VALPROIC ACID ORAL SYRUP 250 MG/5 ML UDC GT SCH ×2 (12:13→21:03)
[2021-10-26] MEDS ORDERED: INSULIN NPH 100 UNITS/ML 10 ML VIAL SUBCUT ONE (12:30)
[2021-10-26] MEDS: LATANOPROST 2.5 ML DROPS (XALATAN) OP SCH (21:00)
[2021-10-26] MEDS: ATORVASTATIN 20 MG TABLET PO SCH (21:06)
[2021-10-26] MEDS: INSULIN GLARGINE 100 UNITS/ML 10 ML VIAL SUBCUT SCH (21:17)
[2021-10-27] VITALS (36 sets, daily range): BP systolic 117–176
[2021-10-27] MEDS: INSULIN REGULAR, HUMAN 100 UNITS/ML, 10 ML VIAL (humuLIN R) SUBCUT PRN ×4 (02:25→17:45)
[2021-10-27] MEDS: PROPOFOL DRIP 100 ML IV PRN ×4 (02:33→21:47)
[2021-10-27 06:08] LABS: BASOPHILS # (AUTO) 0.1 K/uL (0.0-0.2); EOSINOPHILS # (AUTO) 0.1 K/uL (0.0-0.4); EOSINOPHILS % (AUTO) 0.9 % (0.0-4.0); HEMATOCRIT 31.7 % (36-48); HEMOGLOBIN 10.3 g/dL (12.0-16.0); LYMPHOCYTES # (AUTO) 2.1 K/uL (1.0-5.5); LYMPHOCYTES % (AUTO) 18.1 % (20.5-51.5); MEAN CORPUSCULAR HEMOGLOBIN 30 pg (27-31); MEAN CORPUSCULAR HGB CONC 33 % (32-36); MEAN CORPUSCULAR VOLUME 91 fL (79.0-98.0); MONOCYTES % (AUTO) 8.8 % (1.7-9.3); NEUTROPHILS # (AUTO) 8.1 K/uL (1.8-7.7); NEUTROPHILS % (AUTO) 71.2 % (40.0-70.0); PLATELET COUNT (AUTO) 530 K/uL (130-430); RED BLOOD CELL COUNT(AUTO) 3.47 MIL/uL (4.2-6.2); RED CELL DISTRIBUTION WIDTH 15.3 % (9.0-15.0); WHITE BLOOD COUNT (AUTO) 11.4 K/uL (4.8-10.8)
[2021-10-27 06:55] LABS: CALCIUM 9.4 mg/dL (8.4-11.0); CREATININE 0.55 mg/dL (0.55-1.30); POTASSIUM 3.7 mmol/L (3.5-5.1)
[2021-10-27] MEDS: POTASSIUM CHLORIDE 20 MEQ/PKT PACKET PO SCH (08:46)
[2021-10-27] MEDS: PANTOPRAZOLE SODIUM 40 MG/VIAL (PROTONIX) IVP SCH (08:46)
[2021-10-27] MEDS: LISINOPRIL 10 MG TABLET (PRINIVIL) PO SCH (08:47)
[2021-10-27] MEDS: ASCORBIC ACID 500 MG TABLET PO SCH (08:48)
[2021-10-27] MEDS: VALPROIC ACID ORAL SYRUP 250 MG/5 ML UDC GT SCH ×2 (08:48→21:45)
[2021-10-27] MEDS: CALCIUM CARBONATE/VITAMIN D3 1 TAB TABLET PO SCH ×2 (08:48→21:48)
[2021-10-27] MEDS: VANCOMYCIN HCL 750 MG in NS 250 ML IV SCH ×4 (08:49→15:17)
[2021-10-27] MEDS: HEPARIN SODIUM,PORCINE 5,000 UNITS/ML VIAL SUBCUT SCH ×2 (08:50→21:44)
[2021-10-27] MEDS: INSULIN GLARGINE 100 UNITS/ML 10 ML VIAL SUBCUT SCH ×2 (08:51→22:05)
[2021-10-27] MEDS: POLYETHYLENE GLYCOL 3350, 17 GM/ POWD.PACK PO SCH (08:51)
[2021-10-27] MEDS: PEG 400/HYPROMELLOSE/GLYCERIN 15 ML DROPS OP SCH ×4 (09:31→21:48)
[2021-10-27] MEDS: hydrALAZINE HCL 20 MG/ML VIAL IVP PRN (16:48)
[2021-10-27] MEDS: ATORVASTATIN 20 MG TABLET PO SCH (21:44)
[2021-10-27] MEDS: LATANOPROST 2.5 ML DROPS (XALATAN) OP SCH (21:48)
[2021-10-28] VITALS (34 sets, daily range): BP systolic 111–190
[2021-10-28] MEDS: VANCOMYCIN HCL 750 MG in NS 250 ML IV SCH ×3 (00:27→15:21)
[2021-10-28] MEDS: INSULIN REGULAR, HUMAN 100 UNITS/ML, 10 ML VIAL (humuLIN R) SUBCUT PRN ×4 (00:34→18:40)
[2021-10-28] MEDS: PROPOFOL DRIP 100 ML IV PRN ×3 (03:01→13:50)
[2021-10-28 05:56] LABS: BASOPHILS # (AUTO) 0.2 K/uL (0.0-0.2); BASOPHILS % (AUTO) 1.4 % (0.0-2.0); EOSINOPHILS # (AUTO) 0.1 K/uL (0.0-0.4); EOSINOPHILS % (AUTO) 0.7 % (0.0-4.0); HEMATOCRIT 32.8 % (36-48); HEMOGLOBIN 10.7 g/dL (12.0-16.0); LYMPHOCYTES # (AUTO) 2.6 K/uL (1.0-5.5); LYMPHOCYTES % (AUTO) 21.8 % (20.5-51.5); MEAN CORPUSCULAR HEMOGLOBIN 30 pg (27-31); MEAN CORPUSCULAR HGB CONC 33 % (32-36); MEAN CORPUSCULAR VOLUME 92 fL (79.0-98.0); MONOCYTES # (AUTO) 1.2 K/uL (0.0-1.0); MONOCYTES % (AUTO) 9.9 % (1.7-9.3); NEUTROPHILS # (AUTO) 7.8 K/uL (1.8-7.7); NEUTROPHILS % (AUTO) 66.2 % (40.0-70.0); PLATELET COUNT (AUTO) 612 K/uL (130-430); RED BLOOD CELL COUNT(AUTO) 3.58 MIL/uL (4.2-6.2); RED CELL DISTRIBUTION WIDTH 15.7 % (9.0-15.0); WHITE BLOOD COUNT (AUTO) 11.8 K/uL (4.8-10.8)
[2021-10-28 06:20] LABS: CALCIUM 9.1 mg/dL (8.4-11.0); CREATININE 0.47 mg/dL (0.55-1.30); POTASSIUM 3.8 mmol/L (3.5-5.1)
[2021-10-28] MEDS: ASCORBIC ACID 500 MG TABLET PO SCH (08:14)
[2021-10-28] MEDS: POTASSIUM CHLORIDE 20 MEQ/PKT PACKET PO SCH (08:14)
[2021-10-28] MEDS: VALPROIC ACID ORAL SYRUP 250 MG/5 ML UDC GT SCH ×2 (08:14→20:16)
[2021-10-28] MEDS: CALCIUM CARBONATE/VITAMIN D3 1 TAB TABLET PO SCH ×2 (08:14→20:15)
[2021-10-28] MEDS: LISINOPRIL 10 MG TABLET (PRINIVIL) PO SCH (08:15)
[2021-10-28] MEDS: PANTOPRAZOLE SODIUM 40 MG/VIAL (PROTONIX) IVP SCH (08:15)
[2021-10-28] MEDS: HEPARIN SODIUM,PORCINE 5,000 UNITS/ML VIAL SUBCUT SCH ×2 (08:17→20:15)
[2021-10-28] MEDS: POLYETHYLENE GLYCOL 3350, 17 GM/ POWD.PACK PO SCH (08:18)
[2021-10-28] MEDS: PEG 400/HYPROMELLOSE/GLYCERIN 15 ML DROPS OP SCH ×4 (08:19→21:00)
[2021-10-28] MEDS: INSULIN GLARGINE 100 UNITS/ML 10 ML VIAL SUBCUT SCH ×2 (08:20→20:14)
[2021-10-28] MEDS: hydrALAZINE HCL 20 MG/ML VIAL IVP PRN (16:16)
[2021-10-28] MEDS: ATORVASTATIN 20 MG TABLET PO SCH (20:16)
[2021-10-28] MEDS: LATANOPROST 2.5 ML DROPS (XALATAN) OP SCH (21:00)
[2021-10-29] VITALS (34 sets, daily range): BP systolic 108–191
[2021-10-29] MEDS: INSULIN REGULAR, HUMAN 100 UNITS/ML, 10 ML VIAL (humuLIN R) SUBCUT PRN ×4 (00:24→17:23)
[2021-10-29 05:55] LABS: BASOPHILS # (AUTO) 0.1 K/uL (0.0-0.2); BASOPHILS % (AUTO) 0.9 % (0.0-2.0); EOSINOPHILS # (AUTO) 0.1 K/uL (0.0-0.4); EOSINOPHILS % (AUTO) 1.3 % (0.0-4.0); HEMATOCRIT 32.3 % (36-48); HEMOGLOBIN 10.7 g/dL (12.0-16.0); LYMPHOCYTES % (AUTO) 20.7 % (20.5-51.5); MEAN CORPUSCULAR HEMOGLOBIN 30 pg (27-31); MEAN CORPUSCULAR HGB CONC 33 % (32-36); MEAN CORPUSCULAR VOLUME 91 fL (79.0-98.0); MONOCYTES % (AUTO) 10.5 % (1.7-9.3); NEUTROPHILS # (AUTO) 6.4 K/uL (1.8-7.7); NEUTROPHILS % (AUTO) 66.6 % (40.0-70.0); PLATELET COUNT (AUTO) 616 K/uL (130-430); RED BLOOD CELL COUNT(AUTO) 3.55 MIL/uL (4.2-6.2); WHITE BLOOD COUNT (AUTO) 9.7 K/uL (4.8-10.8)
[2021-10-29 06:14] LABS: CALCIUM 9.2 mg/dL (8.4-11.0); CREATININE 0.43 mg/dL (0.55-1.30); POTASSIUM 3.6 mmol/L (3.5-5.1)
[2021-10-29] MEDS: CHOLECALCIFEROL (VITAMIN D3) 5,000 UNIT TABLET PO SCH (08:15)
[2021-10-29] MEDS: VALPROIC ACID ORAL SYRUP 250 MG/5 ML UDC GT SCH ×2 (08:15→21:36)
[2021-10-29] MEDS: CALCIUM CARBONATE/VITAMIN D3 1 TAB TABLET PO SCH ×2 (08:15→21:38)
[2021-10-29] MEDS: PANTOPRAZOLE SODIUM 40 MG/VIAL (PROTONIX) IVP SCH (08:16)
[2021-10-29] MEDS: ASCORBIC ACID 500 MG TABLET PO SCH (08:16)
[2021-10-29] MEDS: POTASSIUM CHLORIDE 20 MEQ/PKT PACKET PO SCH (08:16)
[2021-10-29] MEDS: LISINOPRIL 10 MG TABLET (PRINIVIL) PO SCH (08:16)
[2021-10-29] MEDS: PEG 400/HYPROMELLOSE/GLYCERIN 15 ML DROPS OP SCH ×4 (08:17→21:37)
[2021-10-29] MEDS: HEPARIN SODIUM,PORCINE 5,000 UNITS/ML VIAL SUBCUT SCH ×2 (08:19→21:38)
[2021-10-29] MEDS: POLYETHYLENE GLYCOL 3350, 17 GM/ POWD.PACK PO SCH (08:22)
[2021-10-29] MEDS: INSULIN GLARGINE 100 UNITS/ML 10 ML VIAL SUBCUT SCH ×2 (08:22→21:42)
[2021-10-29] MEDS: PROPOFOL DRIP 100 ML IV PRN ×2 (10:41→17:21)
[2021-10-29] MEDS: cloNIDine HCL 0.1 MG TABLET PO PRN (12:43)
[2021-10-29] MEDS: ATORVASTATIN 20 MG TABLET PO SCH (21:37)
[2021-10-29] MEDS: LATANOPROST 2.5 ML DROPS (XALATAN) OP SCH (21:37)
[2021-10-30] VITALS (32 sets, daily range): BP systolic 93–196
[2021-10-30] MEDS: INSULIN REGULAR, HUMAN 100 UNITS/ML, 10 ML VIAL (humuLIN R) SUBCUT PRN ×5 (00:57→23:50)
[2021-10-30] MEDS: cloNIDine HCL 0.1 MG TABLET PO PRN ×3 (05:36→14:43)
[2021-10-30 06:22] LABS: EOSINOPHILS # (AUTO) 0.2 K/uL (0.0-0.4); EOSINOPHILS % (AUTO) 2.1 % (0.0-4.0); HEMATOCRIT 31.7 % (36-48); HEMOGLOBIN 10.6 g/dL (12.0-16.0); LYMPHOCYTES % (AUTO) 21.3 % (20.5-51.5); MEAN CORPUSCULAR HEMOGLOBIN 30 pg (27-31); MEAN CORPUSCULAR HGB CONC 33 % (32-36); MEAN CORPUSCULAR VOLUME 91 fL (79.0-98.0); MONOCYTES # (AUTO) 0.9 K/uL (0.0-1.0); MONOCYTES % (AUTO) 9.4 % (1.7-9.3); NEUTROPHILS # (AUTO) 6.1 K/uL (1.8-7.7); PLATELET COUNT (AUTO) 616 K/uL (130-430); RED BLOOD CELL COUNT(AUTO) 3.49 MIL/uL (4.2-6.2); RED CELL DISTRIBUTION WIDTH 15.7 % (9.0-15.0); WHITE BLOOD COUNT (AUTO) 9.2 K/uL (4.8-10.8)
[2021-10-30 06:45] LABS: ALBUMIN 2.4 g/dL (3.4-4.8); CALCIUM 9.2 mg/dL (8.4-11.0); CREATININE 0.44 mg/dL (0.55-1.30); POTASSIUM 3.8 mmol/L (3.5-5.1); TOTAL BILIRUBIN 0.2 mg/dL (0.0-1.0)
[2021-10-30 07:16] LABS: BASOPHILS % (AUTO) 0.3 % (0.0-2.0); NEUTROPHILS % (AUTO) 66.9 % (40.0-70.0)
[2021-10-30] MEDS: PROPOFOL DRIP 100 ML IV PRN ×3 (07:52→20:09)
[2021-10-30] MEDS: ASCORBIC ACID 500 MG TABLET PO SCH (08:06)
[2021-10-30] MEDS: VALPROIC ACID ORAL SYRUP 250 MG/5 ML UDC GT SCH ×2 (08:06→21:02)
[2021-10-30] MEDS: CALCIUM CARBONATE/VITAMIN D3 1 TAB TABLET PO SCH ×2 (08:06→21:02)
[2021-10-30] MEDS: PANTOPRAZOLE SODIUM 40 MG/VIAL (PROTONIX) IVP SCH (08:07)
[2021-10-30] MEDS: POLYETHYLENE GLYCOL 3350, 17 GM/ POWD.PACK PO SCH (08:07)
[2021-10-30] MEDS: LISINOPRIL 10 MG TABLET (PRINIVIL) PO SCH (08:07)
[2021-10-30] MEDS: POTASSIUM CHLORIDE 20 MEQ/PKT PACKET PO SCH (08:07)
[2021-10-30] MEDS: HEPARIN SODIUM,PORCINE 5,000 UNITS/ML VIAL SUBCUT SCH ×2 (08:08→21:04)
[2021-10-30] MEDS: PEG 400/HYPROMELLOSE/GLYCERIN 15 ML DROPS OP SCH ×4 (08:10→21:06)
[2021-10-30] MEDS: INSULIN GLARGINE 100 UNITS/ML 10 ML VIAL SUBCUT SCH ×2 (08:11→21:05)
[2021-10-30] MEDS: LATANOPROST 2.5 ML DROPS (XALATAN) OP SCH (21:00)
[2021-10-30] MEDS: ATORVASTATIN 20 MG TABLET PO SCH (21:01)
[2021-10-31] VITALS (36 sets, daily range): BP systolic 115–203
[2021-10-31] MEDS: PROPOFOL DRIP 100 ML IV PRN ×3 (02:56→18:12)
[2021-10-31] MEDS: INSULIN REGULAR, HUMAN 100 UNITS/ML, 10 ML VIAL (humuLIN R) SUBCUT PRN ×4 (05:25→17:46)
[2021-10-31 06:03] LABS: BASOPHILS # (AUTO) 0.1 K/uL (0.0-0.2); BASOPHILS % (AUTO) 1.3 % (0.0-2.0); EOSINOPHILS # (AUTO) 0.2 K/uL (0.0-0.4); EOSINOPHILS % (AUTO) 1.9 % (0.0-4.0); HEMATOCRIT 34.1 % (36-48); HEMOGLOBIN 11.4 g/dL (12.0-16.0); LYMPHOCYTES # (AUTO) 2.1 K/uL (1.0-5.5); LYMPHOCYTES % (AUTO) 21.5 % (20.5-51.5); MEAN CORPUSCULAR HEMOGLOBIN 30 pg (27-31); MEAN CORPUSCULAR HGB CONC 34 % (32-36); MEAN CORPUSCULAR VOLUME 90 fL (79.0-98.0); MONOCYTES # (AUTO) 0.8 K/uL (0.0-1.0); MONOCYTES % (AUTO) 8.7 % (1.7-9.3); NEUTROPHILS # (AUTO) 6.4 K/uL (1.8-7.7); NEUTROPHILS % (AUTO) 66.6 % (40.0-70.0); PLATELET COUNT (AUTO) 599 K/uL (130-430); RED BLOOD CELL COUNT(AUTO) 3.79 MIL/uL (4.2-6.2); RED CELL DISTRIBUTION WIDTH 15.6 % (9.0-15.0); WHITE BLOOD COUNT (AUTO) 9.6 K/uL (4.8-10.8)
[2021-10-31 06:20] LABS: CALCIUM 9.4 mg/dL (8.4-11.0); CREATININE 0.53 mg/dL (0.55-1.30)
[2021-10-31] MEDS: HEPARIN SODIUM,PORCINE 5,000 UNITS/ML VIAL SUBCUT SCH ×2 (09:14→22:01)
[2021-10-31] MEDS: PANTOPRAZOLE SODIUM 40 MG/VIAL (PROTONIX) IVP SCH (09:18)
[2021-10-31] MEDS: POLYETHYLENE GLYCOL 3350, 17 GM/ POWD.PACK PO SCH (09:19)
[2021-10-31] MEDS: CALCIUM CARBONATE/VITAMIN D3 1 TAB TABLET PO SCH ×2 (09:19→21:00)
[2021-10-31] MEDS: PEG 400/HYPROMELLOSE/GLYCERIN 15 ML DROPS OP SCH ×4 (09:19→21:00)
[2021-10-31] MEDS: POTASSIUM CHLORIDE 20 MEQ/PKT PACKET PO SCH (09:19)
[2021-10-31] MEDS: VALPROIC ACID ORAL SYRUP 250 MG/5 ML UDC GT SCH ×2 (09:20→21:58)
[2021-10-31] MEDS: ASCORBIC ACID 500 MG TABLET PO SCH (09:21)
[2021-10-31] MEDS: LISINOPRIL 10 MG TABLET (PRINIVIL) PO SCH (09:22)
[2021-10-31] MEDS: INSULIN GLARGINE 100 UNITS/ML 10 ML VIAL SUBCUT SCH ×2 (09:26→22:03)
[2021-10-31] MEDS: hydrALAZINE HCL 20 MG/ML VIAL IVP PRN (10:48)
[2021-10-31] MEDS: LATANOPROST 2.5 ML DROPS (XALATAN) OP SCH (21:00)
[2021-10-31] MEDS: ATORVASTATIN 20 MG TABLET PO SCH (21:58)
[2021-11-01] VITALS (32 sets, daily range): BP systolic 108–173
[2021-11-01] MEDS: INSULIN REGULAR, HUMAN 100 UNITS/ML, 10 ML VIAL (humuLIN R) SUBCUT PRN ×5 (01:32→23:54)
[2021-11-01] MEDS: PROPOFOL DRIP 100 ML IV PRN ×4 (01:38→18:19)
[2021-11-01 07:02] LABS: BASOPHILS # (AUTO) 0.1 K/uL (0.0-0.2); BASOPHILS % (AUTO) 1.3 % (0.0-2.0); CALCIUM 9.6 mg/dL (8.4-11.0); CREATININE 0.49 mg/dL (0.55-1.30); EOSINOPHILS # (AUTO) 0.2 K/uL (0.0-0.4); EOSINOPHILS % (AUTO) 1.9 % (0.0-4.0); HEMATOCRIT 33.8 % (36-48); HEMOGLOBIN 11.1 g/dL (12.0-16.0); LYMPHOCYTES # (AUTO) 1.7 K/uL (1.0-5.5); LYMPHOCYTES % (AUTO) 16.2 % (20.5-51.5); MEAN CORPUSCULAR HEMOGLOBIN 30 pg (27-31); MEAN CORPUSCULAR HGB CONC 33 % (32-36); MEAN CORPUSCULAR VOLUME 91 fL (79.0-98.0); MONOCYTES # (AUTO) 0.8 K/uL (0.0-1.0); MONOCYTES % (AUTO) 7.3 % (1.7-9.3); NEUTROPHILS # (AUTO) 7.9 K/uL (1.8-7.7); NEUTROPHILS % (AUTO) 73.3 % (40.0-70.0); PLATELET COUNT (AUTO) 606 K/uL (130-430); POTASSIUM 3.8 mmol/L (3.5-5.1); RED BLOOD CELL COUNT(AUTO) 3.71 MIL/uL (4.2-6.2); RED CELL DISTRIBUTION WIDTH 15.8 % (9.0-15.0); WHITE BLOOD COUNT (AUTO) 10.7 K/uL (4.8-10.8)
[2021-11-01] MEDS: POTASSIUM CHLORIDE 20 MEQ/PKT PACKET PO SCH (08:28)
[2021-11-01] MEDS: POLYETHYLENE GLYCOL 3350, 17 GM/ POWD.PACK PO SCH (08:29)
[2021-11-01] MEDS: CALCIUM CARBONATE/VITAMIN D3 1 TAB TABLET PO SCH ×2 (08:29→21:00)
[2021-11-01] MEDS: ASCORBIC ACID 500 MG TABLET PO SCH (08:29)
[2021-11-01] MEDS: LISINOPRIL 10 MG TABLET (PRINIVIL) PO SCH (08:29)
[2021-11-01] MEDS: PANTOPRAZOLE SODIUM 40 MG/VIAL (PROTONIX) IVP SCH (08:30)
[2021-11-01] MEDS: HEPARIN SODIUM,PORCINE 5,000 UNITS/ML VIAL SUBCUT SCH ×2 (08:36→22:23)
[2021-11-01] MEDS: VALPROIC ACID ORAL SYRUP 250 MG/5 ML UDC GT SCH ×2 (08:40→21:59)
[2021-11-01] MEDS: INSULIN GLARGINE 100 UNITS/ML 10 ML VIAL SUBCUT SCH ×2 (08:50→22:38)
[2021-11-01] MEDS: hydrALAZINE HCL 20 MG/ML VIAL IVP PRN (09:14)
[2021-11-01] MEDS: PEG 400/HYPROMELLOSE/GLYCERIN 15 ML DROPS OP SCH ×4 (09:51→21:00)
[2021-11-01] MEDS ORDERED: MORPHINE 2 MG/ML INJ. SYRINGE IVP PRN (13:30)
[2021-11-01] MEDS: MORPHINE 2 MG/ML INJ. SYRINGE IVP PRN (13:49)
[2021-11-01] MEDS: LATANOPROST 2.5 ML DROPS (XALATAN) OP SCH (21:00)
[2021-11-01] MEDS: ATORVASTATIN 20 MG TABLET PO SCH (21:59)
[2021-11-02] VITALS (36 sets, daily range): BP systolic 97–199
[2021-11-02] MEDS: PROPOFOL DRIP 100 ML IV PRN (01:51)
[2021-11-02] MEDS: ACETAMINOPHEN 325 MG TABLET PO SCH (05:41)
[2021-11-02] MEDS: INSULIN REGULAR, HUMAN 100 UNITS/ML, 10 ML VIAL (humuLIN R) SUBCUT PRN ×4 (05:58→23:52)
[2021-11-02] MEDS: VALPROIC ACID ORAL SYRUP 250 MG/5 ML UDC GT SCH ×2 (08:11→20:28)
[2021-11-02] MEDS: CALCIUM CARBONATE/VITAMIN D3 1 TAB TABLET PO SCH ×2 (08:12→20:28)
[2021-11-02] MEDS: PANTOPRAZOLE SODIUM 40 MG/VIAL (PROTONIX) IVP SCH (08:12)
[2021-11-02] MEDS: POTASSIUM CHLORIDE 20 MEQ/PKT PACKET PO SCH (08:12)
[2021-11-02] MEDS: POLYETHYLENE GLYCOL 3350, 17 GM/ POWD.PACK PO SCH (08:12)
[2021-11-02] MEDS: LISINOPRIL 10 MG TABLET (PRINIVIL) PO SCH (08:13)
[2021-11-02] MEDS: ASCORBIC ACID 500 MG TABLET PO SCH (08:13)
[2021-11-02] MEDS: HEPARIN SODIUM,PORCINE 5,000 UNITS/ML VIAL SUBCUT SCH ×2 (08:15→20:31)
[2021-11-02] MEDS: DOCUSATE SODIUM 100 MG CAPSULE PO PRN (08:15)
[2021-11-02] MEDS: cloNIDine HCL 0.1 MG TABLET PO PRN ×3 (08:15→21:09)
[2021-11-02] MEDS: INSULIN GLARGINE 100 UNITS/ML 10 ML VIAL SUBCUT SCH ×2 (08:22→20:32)
[2021-11-02] MEDS: PEG 400/HYPROMELLOSE/GLYCERIN 15 ML DROPS OP SCH ×4 (08:58→20:29)
[2021-11-02] MEDS ORDERED: DEXMEDETOMIDINE HCL 200 MCG in NS 48 ML IV PRN (10:45)
[2021-11-02] MEDS: DEXMEDETOMIDINE HCL 400 MCG in NS 96 ML IV PRN (11:54)
[2021-11-02] MEDS: HALOPERIDOL 5 MG TABLET (HALDOL) PO PRN (12:43)
[2021-11-02] MEDS: LATANOPROST 2.5 ML DROPS (XALATAN) OP SCH (20:29)
[2021-11-02] MEDS: ATORVASTATIN 20 MG TABLET PO SCH (20:30)
[2021-11-02] MEDS: hydrALAZINE HCL 20 MG/ML VIAL IVP PRN (21:07)
[2021-11-03] VITALS (29 sets, daily range): BP systolic 90–188
[2021-11-03] MEDS: hydrALAZINE HCL 20 MG/ML VIAL IVP PRN ×2 (05:22→09:41)
[2021-11-03] MEDS: INSULIN REGULAR, HUMAN 100 UNITS/ML, 10 ML VIAL (humuLIN R) SUBCUT PRN ×4 (05:40→23:32)
[2021-11-03 06:35] LABS: EOSINOPHILS # (AUTO) 0.2 K/uL (0.0-0.4); EOSINOPHILS % (AUTO) 1.4 % (0.0-4.0); HEMATOCRIT 32.3 % (36-48); HEMOGLOBIN 10.6 g/dL (12.0-16.0); LYMPHOCYTES # (AUTO) 2.3 K/uL (1.0-5.5); LYMPHOCYTES % (AUTO) 17.9 % (20.5-51.5); MEAN CORPUSCULAR HEMOGLOBIN 29 pg (27-31); MEAN CORPUSCULAR HGB CONC 33 % (32-36); MEAN CORPUSCULAR VOLUME 89 fL (79.0-98.0); MONOCYTES # (AUTO) 0.8 K/uL (0.0-1.0); MONOCYTES % (AUTO) 6.5 % (1.7-9.3); PLATELET COUNT (AUTO) 561 K/uL (130-430); RED BLOOD CELL COUNT(AUTO) 3.61 MIL/uL (4.2-6.2); RED CELL DISTRIBUTION WIDTH 15.1 % (9.0-15.0); WHITE BLOOD COUNT (AUTO) 12.6 K/uL (4.8-10.8)
[2021-11-03 07:46] LABS: CALCIUM 10.4 mg/dL (8.4-11.0); CREATININE 0.46 mg/dL (0.55-1.30); POTASSIUM 3.7 mmol/L (3.5-5.1)
[2021-11-03] MEDS: ASCORBIC ACID 500 MG TABLET PO SCH (08:30)
[2021-11-03] MEDS: POTASSIUM CHLORIDE 20 MEQ/PKT PACKET PO SCH (08:30)
[2021-11-03] MEDS: PANTOPRAZOLE SODIUM 40 MG/VIAL (PROTONIX) IVP SCH (08:30)
[2021-11-03] MEDS: POLYETHYLENE GLYCOL 3350, 17 GM/ POWD.PACK PO SCH (08:30)
[2021-11-03] MEDS: LISINOPRIL 10 MG TABLET (PRINIVIL) PO SCH (08:31)
[2021-11-03] MEDS: CALCIUM CARBONATE/VITAMIN D3 1 TAB TABLET PO SCH ×2 (08:32→21:00)
[2021-11-03] MEDS: VALPROIC ACID ORAL SYRUP 250 MG/5 ML UDC GT SCH ×2 (08:32→22:15)
[2021-11-03] MEDS: PEG 400/HYPROMELLOSE/GLYCERIN 15 ML DROPS OP SCH ×4 (08:34→21:00)
[2021-11-03] MEDS: HEPARIN SODIUM,PORCINE 5,000 UNITS/ML VIAL SUBCUT SCH ×2 (08:35→22:14)
[2021-11-03] MEDS: INSULIN GLARGINE 100 UNITS/ML 10 ML VIAL SUBCUT SCH ×2 (08:38→23:28)
[2021-11-03 10:09] LABS: BASOPHILS % (AUTO) 0.2 % (0.0-2.0); NEUTROPHILS # (AUTO) 9.3 K/uL (1.8-7.7)
[2021-11-03] MEDS: cloNIDine HCL 0.1 MG TABLET PO PRN ×2 (10:46→17:09)
[2021-11-03] MEDS: DEXMEDETOMIDINE HCL 400 MCG in NS 96 ML IV PRN (14:51)
[2021-11-03] MEDS: LATANOPROST 2.5 ML DROPS (XALATAN) OP SCH (21:00)
[2021-11-03] MEDS: ATORVASTATIN 20 MG TABLET PO SCH (22:11)
[2021-11-04] VITALS (27 sets, daily range): BP systolic 90–181
[2021-11-04] MEDS: ACETAMINOPHEN 325 MG TABLET PO SCH ×2 (00:15→06:01)
[2021-11-04 05:48] LABS: BASOPHILS # (AUTO) 0.1 K/uL (0.0-0.2); BASOPHILS % (AUTO) 1.1 % (0.0-2.0); EOSINOPHILS # (AUTO) 0.1 K/uL (0.0-0.4); EOSINOPHILS % (AUTO) 1.1 % (0.0-4.0); HEMATOCRIT 28.4 % (36-48); HEMOGLOBIN 9.2 g/dL (12.0-16.0); LYMPHOCYTES # (AUTO) 2.4 K/uL (1.0-5.5); LYMPHOCYTES % (AUTO) 19.7 % (20.5-51.5); MEAN CORPUSCULAR HEMOGLOBIN 29 pg (27-31); MEAN CORPUSCULAR HGB CONC 32 % (32-36); MEAN CORPUSCULAR VOLUME 90 fL (79.0-98.0); MONOCYTES # (AUTO) 1.1 K/uL (0.0-1.0); MONOCYTES % (AUTO) 9.2 % (1.7-9.3); NEUTROPHILS # (AUTO) 8.5 K/uL (1.8-7.7); NEUTROPHILS % (AUTO) 68.9 % (40.0-70.0); PLATELET COUNT (AUTO) 482 K/uL (130-430); RED BLOOD CELL COUNT(AUTO) 3.16 MIL/uL (4.2-6.2); RED CELL DISTRIBUTION WIDTH 15.7 % (9.0-15.0); WHITE BLOOD COUNT (AUTO) 12.3 K/uL (4.8-10.8)
[2021-11-04 06:01] LABS: CALCIUM 9.8 mg/dL (8.4-11.0); CREATININE 0.58 mg/dL (0.55-1.30)
[2021-11-04 06:31] LABS: POTASSIUM 3.7 mmol/L (3.5-5.1)
[2021-11-04] MEDS: hydrALAZINE HCL 20 MG/ML VIAL IVP PRN (08:55)
[2021-11-04] MEDS: POTASSIUM CHLORIDE 20 MEQ/PKT PACKET PO SCH (08:56)
[2021-11-04] MEDS: POLYETHYLENE GLYCOL 3350, 17 GM/ POWD.PACK PO SCH (08:56)
[2021-11-04] MEDS: PANTOPRAZOLE SODIUM 40 MG/VIAL (PROTONIX) IVP SCH (08:56)
[2021-11-04] MEDS: ASCORBIC ACID 500 MG TABLET PO SCH (08:57)
[2021-11-04] MEDS: LISINOPRIL 10 MG TABLET (PRINIVIL) PO SCH (08:58)
[2021-11-04] MEDS: HEPARIN SODIUM,PORCINE 5,000 UNITS/ML VIAL SUBCUT SCH ×2 (09:04→21:00)
[2021-11-04] MEDS: CALCIUM CARBONATE/VITAMIN D3 1 TAB TABLET PO SCH ×2 (09:20→21:00)
[2021-11-04] MEDS: PEG 400/HYPROMELLOSE/GLYCERIN 15 ML DROPS OP SCH ×4 (09:21→21:00)
[2021-11-04] MEDS: VALPROIC ACID ORAL SYRUP 250 MG/5 ML UDC GT SCH ×2 (09:21→21:00)
[2021-11-04] MEDS: INSULIN GLARGINE 100 UNITS/ML 10 ML VIAL SUBCUT SCH ×2 (09:26→21:00)
[2021-11-04] MEDS: DEXMEDETOMIDINE HCL 400 MCG in NS 96 ML IV PRN (10:04)
[2021-11-04 16:28] LABS: BILIRUBIN,URINE NEGATIVE (NEGATIVE); BLOOD, URINE 3+ (NEGATIVE); COLOR,URINE YELLOW (YELLOW); GLUCOSE,URINE NEGATIVE (NEGATIVE); KETONES,URINE NEGATIVE (NEGATIVE); LEUKOCYTE ESTERASE ,URINE NEGATIVE (NEGATIVE); NITRITE, URINE NEGATIVE (NEGATIVE); PROTEIN URINE NEGATIVE (NEGATIVE)
[2021-11-04 16:39] LABS: CLARITY/URINE HAZY (CLEAR)
[2021-11-04 16:47] LABS: BACTERIA,URINE FEW /HPF (None Seen); MUCUS,URINE 1+ /LPF (None Seen); RBC,URINE 50-80 /HPF (0-3); WBC,URINE 0-3 /HPF (0-3)
[2021-11-04] MEDS: LATANOPROST 2.5 ML DROPS (XALATAN) OP SCH (21:00)
[2021-11-04] MEDS: ATORVASTATIN 20 MG TABLET PO SCH (21:00)
[2021-11-05] VITALS (35 sets, daily range): BP systolic 94–184
[2021-11-05] MEDS: INSULIN REGULAR, HUMAN 100 UNITS/ML, 10 ML VIAL (humuLIN R) SUBCUT PRN ×4 (05:23→23:12)
[2021-11-05 06:18] LABS: BASOPHILS # (AUTO) 0.1 K/uL (0.0-0.2); BASOPHILS % (AUTO) 1.1 % (0.0-2.0); EOSINOPHILS % (AUTO) 0.3 % (0.0-4.0); HEMATOCRIT 30.2 % (36-48); HEMOGLOBIN 9.8 g/dL (12.0-16.0); LYMPHOCYTES # (AUTO) 1.6 K/uL (1.0-5.5); LYMPHOCYTES % (AUTO) 14.5 % (20.5-51.5); MEAN CORPUSCULAR HEMOGLOBIN 29 pg (27-31); MEAN CORPUSCULAR HGB CONC 33 % (32-36); MEAN CORPUSCULAR VOLUME 89 fL (79.0-98.0); MONOCYTES # (AUTO) 0.9 K/uL (0.0-1.0); MONOCYTES % (AUTO) 7.8 % (1.7-9.3); NEUTROPHILS # (AUTO) 8.4 K/uL (1.8-7.7); NEUTROPHILS % (AUTO) 76.3 % (40.0-70.0); PLATELET COUNT (AUTO) 459 K/uL (130-430); RED BLOOD CELL COUNT(AUTO) 3.38 MIL/uL (4.2-6.2); RED CELL DISTRIBUTION WIDTH 15.5 % (9.0-15.0); WHITE BLOOD COUNT (AUTO) 11.1 K/uL (4.8-10.8)
[2021-11-05 06:56] LABS: ALBUMIN 2.2 g/dL (3.4-4.8); CALCIUM 9.4 mg/dL (8.4-11.0); CREATININE 0.59 mg/dL (0.55-1.30); TOTAL BILIRUBIN 0.1 mg/dL (0.0-1.0)
[2021-11-05] MEDS: ASCORBIC ACID 500 MG TABLET PO SCH (08:36)
[2021-11-05] MEDS: PANTOPRAZOLE SODIUM 40 MG/VIAL (PROTONIX) IVP SCH (08:36)
[2021-11-05] MEDS: CHOLECALCIFEROL (VITAMIN D3) 2,000 UNIT TABLET PO SCH (08:37)
[2021-11-05] MEDS: POLYETHYLENE GLYCOL 3350, 17 GM/ POWD.PACK PO SCH (08:37)
[2021-11-05] MEDS: POTASSIUM CHLORIDE 20 MEQ/PKT PACKET PO SCH (08:38)
[2021-11-05] MEDS: CALCIUM CARBONATE/VITAMIN D3 1 TAB TABLET PO SCH ×2 (08:38→20:31)
[2021-11-05] MEDS: VALPROIC ACID ORAL SYRUP 250 MG/5 ML UDC GT SCH ×2 (08:38→20:29)
[2021-11-05] MEDS: PEG 400/HYPROMELLOSE/GLYCERIN 15 ML DROPS OP SCH ×4 (08:39→20:30)
[2021-11-05] MEDS: HEPARIN SODIUM,PORCINE 5,000 UNITS/ML VIAL SUBCUT SCH ×2 (08:42→20:36)
[2021-11-05] MEDS: INSULIN GLARGINE 100 UNITS/ML 10 ML VIAL SUBCUT SCH ×2 (10:41→20:39)
[2021-11-05] MEDS: DEXMEDETOMIDINE HCL 400 MCG in NS 96 ML IV PRN ×2 (10:42→22:20)
[2021-11-05] MEDS: LISINOPRIL 10 MG TABLET (PRINIVIL) PO SCH (10:44)
[2021-11-05] MEDS: hydrALAZINE HCL 20 MG/ML VIAL IVP PRN ×2 (16:08→21:51)
[2021-11-05] MEDS: LATANOPROST 2.5 ML DROPS (XALATAN) OP SCH (20:31)
[2021-11-05] MEDS: ATORVASTATIN 20 MG TABLET PO SCH (20:31)
[2021-11-06] VITALS (35 sets, daily range): BP systolic 107–190
[2021-11-06 03:33] LABS: BILIRUBIN,URINE NEGATIVE (NEGATIVE); BLOOD, URINE 1+ (NEGATIVE); CLARITY/URINE CLEAR (CLEAR); COLOR,URINE YELLOW (YELLOW); GLUCOSE,URINE NEGATIVE (NEGATIVE); KETONES,URINE NEGATIVE (NEGATIVE); LEUKOCYTE ESTERASE ,URINE NEGATIVE (NEGATIVE); NITRITE, URINE NEGATIVE (NEGATIVE); PH,URINE 6.5 (5.0-8.0); PROTEIN URINE 2+ (NEGATIVE)
[2021-11-06 03:51] LABS: BACTERIA,URINE MANY /HPF (None Seen); RBC,URINE 20-50 /HPF (0-3)
[2021-11-06 03:52] LABS: CALCIUM OXALATE CRYSTALS,UR 0-10 /HPF (None Seen)
[2021-11-06 08:31] LABS: ALBUMIN 2.2 g/dL (3.4-4.8); CALCIUM 9.7 mg/dL (8.4-11.0); CREATININE 0.61 mg/dL (0.55-1.30); POTASSIUM 3.9 mmol/L (3.5-5.1); TOTAL BILIRUBIN 0.2 mg/dL (0.0-1.0)
[2021-11-06] MEDS: POTASSIUM CHLORIDE 20 MEQ/PKT PACKET PO SCH (08:56)
[2021-11-06] MEDS: ASCORBIC ACID 500 MG TABLET PO SCH (08:56)
[2021-11-06] MEDS: CHOLECALCIFEROL (VITAMIN D3) 2,000 UNIT TABLET PO SCH (08:56)
[2021-11-06] MEDS: LISINOPRIL 10 MG TABLET (PRINIVIL) PO SCH (08:57)
[2021-11-06] MEDS: POLYETHYLENE GLYCOL 3350, 17 GM/ POWD.PACK PO SCH (08:57)
[2021-11-06] MEDS: VALPROIC ACID ORAL SYRUP 250 MG/5 ML UDC GT SCH ×2 (08:58→20:54)
[2021-11-06] MEDS: PANTOPRAZOLE SODIUM 40 MG/VIAL (PROTONIX) IVP SCH (08:58)
[2021-11-06] MEDS: CALCIUM CARBONATE/VITAMIN D3 1 TAB TABLET PO SCH ×2 (08:59→20:59)
[2021-11-06] MEDS: HEPARIN SODIUM,PORCINE 5,000 UNITS/ML VIAL SUBCUT SCH ×2 (09:00→20:45)
[2021-11-06] MEDS: INSULIN GLARGINE 100 UNITS/ML 10 ML VIAL SUBCUT SCH ×2 (09:02→20:49)
[2021-11-06] MEDS: PEG 400/HYPROMELLOSE/GLYCERIN 15 ML DROPS OP SCH ×4 (09:04→20:56)
[2021-11-06] MEDS: DEXMEDETOMIDINE HCL 400 MCG in NS 96 ML IV PRN ×2 (10:49→17:55)
[2021-11-06] MEDS: hydrALAZINE HCL 20 MG/ML VIAL IVP PRN ×2 (11:14→17:55)
[2021-11-06 12:01] LABS: BASOPHILS # (AUTO) 0.1 K/uL (0.0-0.2); BASOPHILS % (AUTO) 0.8 % (0.0-2.0); EOSINOPHILS % (AUTO) 0.1 % (0.0-4.0); HEMATOCRIT 34.1 % (36-48); HEMOGLOBIN 10.7 g/dL (12.0-16.0); LYMPHOCYTES # (AUTO) 1.8 K/uL (1.0-5.5); LYMPHOCYTES % (AUTO) 15.4 % (20.5-51.5); MEAN CORPUSCULAR HEMOGLOBIN 29 pg (27-31); MEAN CORPUSCULAR HGB CONC 32 % (32-36); MEAN CORPUSCULAR VOLUME 91 fL (79.0-98.0); MONOCYTES # (AUTO) 1.1 K/uL (0.0-1.0); MONOCYTES % (AUTO) 9.4 % (1.7-9.3); NEUTROPHILS # (AUTO) 8.6 K/uL (1.8-7.7); NEUTROPHILS % (AUTO) 74.3 % (40.0-70.0); PLATELET COUNT (AUTO) 415 K/uL (130-430); RED BLOOD CELL COUNT(AUTO) 3.76 MIL/uL (4.2-6.2); RED CELL DISTRIBUTION WIDTH 15.8 % (9.0-15.0); WHITE BLOOD COUNT (AUTO) 11.5 K/uL (4.8-10.8)
[2021-11-06] MEDS: MORPHINE 2 MG/ML INJ. SYRINGE IVP PRN (17:55)
[2021-11-06] MEDS: ATORVASTATIN 20 MG TABLET PO SCH (20:52)
[2021-11-06] MEDS: LATANOPROST 2.5 ML DROPS (XALATAN) OP SCH (20:56)
[2021-11-07] VITALS (36 sets, daily range): BP systolic 88–184
[2021-11-07] MEDS: DEXMEDETOMIDINE HCL 400 MCG in NS 96 ML IV PRN ×2 (02:14→14:25)
[2021-11-07] MEDS: INSULIN REGULAR, HUMAN 100 UNITS/ML, 10 ML VIAL (humuLIN R) SUBCUT PRN (06:28)
[2021-11-07 07:54] LABS: CALCIUM 9.6 mg/dL (8.4-11.0); CREATININE 0.62 mg/dL (0.55-1.30)
[2021-11-07 08:02] LABS: BASOPHILS # (AUTO) 0.1 K/uL (0.0-0.2); EOSINOPHILS % (AUTO) 0.2 % (0.0-4.0); HEMATOCRIT 31.5 % (36-48); HEMOGLOBIN 10.1 g/dL (12.0-16.0); LYMPHOCYTES # (AUTO) 2.1 K/uL (1.0-5.5); LYMPHOCYTES % (AUTO) 19.4 % (20.5-51.5); MEAN CORPUSCULAR HEMOGLOBIN 29 pg (27-31); MEAN CORPUSCULAR HGB CONC 32 % (32-36); MEAN CORPUSCULAR VOLUME 91 fL (79.0-98.0); MONOCYTES # (AUTO) 1.2 K/uL (0.0-1.0); MONOCYTES % (AUTO) 11.3 % (1.7-9.3); NEUTROPHILS # (AUTO) 7.4 K/uL (1.8-7.7); NEUTROPHILS % (AUTO) 68.1 % (40.0-70.0); PLATELET COUNT (AUTO) 391 K/uL (130-430); RED BLOOD CELL COUNT(AUTO) 3.48 MIL/uL (4.2-6.2); RED CELL DISTRIBUTION WIDTH 15.6 % (9.0-15.0); WHITE BLOOD COUNT (AUTO) 10.9 K/uL (4.8-10.8)
[2021-11-07] MEDS: PANTOPRAZOLE SODIUM 40 MG/VIAL (PROTONIX) IVP SCH (08:17)
[2021-11-07] MEDS: POTASSIUM CHLORIDE 20 MEQ/PKT PACKET PO SCH (08:18)
[2021-11-07] MEDS: POLYETHYLENE GLYCOL 3350, 17 GM/ POWD.PACK PO SCH (08:18)
[2021-11-07] MEDS: HEPARIN SODIUM,PORCINE 5,000 UNITS/ML VIAL SUBCUT SCH ×2 (08:18→21:20)
[2021-11-07] MEDS: ASCORBIC ACID 500 MG TABLET PO SCH (08:19)
[2021-11-07] MEDS: CHOLECALCIFEROL (VITAMIN D3) 2,000 UNIT TABLET PO SCH (08:19)
[2021-11-07] MEDS: LISINOPRIL 10 MG TABLET (PRINIVIL) PO SCH (08:19)
[2021-11-07 08:20] LABS: POTASSIUM 4.4 mmol/L (3.5-5.1)
[2021-11-07] MEDS: INSULIN GLARGINE 100 UNITS/ML 10 ML VIAL SUBCUT SCH ×2 (08:21→21:19)
[2021-11-07] MEDS: VALPROIC ACID ORAL SYRUP 250 MG/5 ML UDC GT SCH ×2 (08:22→20:56)
[2021-11-07] MEDS: CALCIUM CARBONATE/VITAMIN D3 1 TAB TABLET PO SCH ×2 (08:22→20:57)
[2021-11-07] MEDS: PEG 400/HYPROMELLOSE/GLYCERIN 15 ML DROPS OP SCH ×4 (08:23→20:56)
[2021-11-07] MEDS: hydrALAZINE HCL 20 MG/ML VIAL IVP PRN ×2 (11:02→20:58)
[2021-11-07] MEDS: MORPHINE 2 MG/ML INJ. SYRINGE IVP PRN ×2 (11:03→17:19)
[2021-11-07] MEDS: PROPOFOL DRIP 100 ML IV PRN (14:59)
[2021-11-07] MEDS: ATORVASTATIN 20 MG TABLET PO SCH (20:56)
[2021-11-07] MEDS: LATANOPROST 2.5 ML DROPS (XALATAN) OP SCH (20:56)
[2021-11-08] VITALS (34 sets, daily range): BP systolic 112–167
[2021-11-08] MEDS: INSULIN REGULAR, HUMAN 100 UNITS/ML, 10 ML VIAL (humuLIN R) SUBCUT PRN ×4 (00:22→17:44)
[2021-11-08] MEDS: PROPOFOL DRIP 100 ML IV PRN ×2 (02:37→17:09)
[2021-11-08] MEDS: LISINOPRIL 10 MG TABLET (PRINIVIL) PO SCH (08:13)
[2021-11-08] MEDS: CHOLECALCIFEROL (VITAMIN D3) 2,000 UNIT TABLET PO SCH (08:13)
[2021-11-08] MEDS: POTASSIUM CHLORIDE 20 MEQ/PKT PACKET PO SCH (08:13)
[2021-11-08] MEDS: ASCORBIC ACID 500 MG TABLET PO SCH (08:13)
[2021-11-08] MEDS: VALPROIC ACID ORAL SYRUP 250 MG/5 ML UDC GT SCH ×2 (08:14→21:09)
[2021-11-08] MEDS: CALCIUM CARBONATE/VITAMIN D3 1 TAB TABLET PO SCH ×2 (08:14→21:09)
[2021-11-08] MEDS: PANTOPRAZOLE SODIUM 40 MG/VIAL (PROTONIX) IVP SCH (08:15)
[2021-11-08] MEDS: PEG 400/HYPROMELLOSE/GLYCERIN 15 ML DROPS OP SCH ×4 (08:15→21:08)
[2021-11-08] MEDS: POLYETHYLENE GLYCOL 3350, 17 GM/ POWD.PACK PO SCH (08:15)
[2021-11-08] MEDS: INSULIN GLARGINE 100 UNITS/ML 10 ML VIAL SUBCUT SCH ×2 (08:18→21:15)
[2021-11-08] MEDS: HEPARIN SODIUM,PORCINE 5,000 UNITS/ML VIAL SUBCUT SCH ×2 (08:20→21:16)
[2021-11-08] MEDS: LATANOPROST 2.5 ML DROPS (XALATAN) OP SCH ×2 (12:18→21:08)
[2021-11-08] MEDS: MORPHINE 2 MG/ML INJ. SYRINGE IVP PRN (17:18)
[2021-11-08] MEDS: ATORVASTATIN 20 MG TABLET PO SCH (21:09)
[2021-11-09] VITALS (36 sets, daily range): BP systolic 106–189
[2021-11-09] MEDS: PROPOFOL DRIP 100 ML IV PRN ×2 (03:58→16:29)
[2021-11-09] MEDS: INSULIN REGULAR, HUMAN 100 UNITS/ML, 10 ML VIAL (humuLIN R) SUBCUT PRN ×3 (06:06→17:08)
[2021-11-09 06:47] LABS: BASOPHILS # (AUTO) 0.1 K/uL (0.0-0.2); BASOPHILS % (AUTO) 0.8 % (0.0-2.0); EOSINOPHILS # (AUTO) 0.3 K/uL (0.0-0.4); EOSINOPHILS % (AUTO) 1.9 % (0.0-4.0); HEMATOCRIT 32.3 % (36-48); HEMOGLOBIN 10.4 g/dL (12.0-16.0); LYMPHOCYTES # (AUTO) 1.6 K/uL (1.0-5.5); LYMPHOCYTES % (AUTO) 11.9 % (20.5-51.5); MEAN CORPUSCULAR HEMOGLOBIN 29 pg (27-31); MEAN CORPUSCULAR HGB CONC 32 % (32-36); MEAN CORPUSCULAR VOLUME 90 fL (79.0-98.0); MONOCYTES # (AUTO) 0.8 K/uL (0.0-1.0); MONOCYTES % (AUTO) 6.1 % (1.7-9.3); NEUTROPHILS # (AUTO) 10.8 K/uL (1.8-7.7); NEUTROPHILS % (AUTO) 79.3 % (40.0-70.0); PLATELET COUNT (AUTO) 374 K/uL (130-430); RED BLOOD CELL COUNT(AUTO) 3.59 MIL/uL (4.2-6.2); RED CELL DISTRIBUTION WIDTH 15.8 % (9.0-15.0); WHITE BLOOD COUNT (AUTO) 13.6 K/uL (4.8-10.8)
[2021-11-09 07:03] LABS: CALCIUM 9.1 mg/dL (8.4-11.0); CREATININE 0.47 mg/dL (0.55-1.30); POTASSIUM 3.8 mmol/L (3.5-5.1)
[2021-11-09] MEDS: INSULIN GLARGINE 100 UNITS/ML 10 ML VIAL SUBCUT SCH ×2 (09:32→21:00)
[2021-11-09] MEDS: HEPARIN SODIUM,PORCINE 5,000 UNITS/ML VIAL SUBCUT SCH ×2 (09:36→21:00)
[2021-11-09] MEDS: ASCORBIC ACID 500 MG TABLET PO SCH (09:38)
[2021-11-09] MEDS: VALPROIC ACID ORAL SYRUP 250 MG/5 ML UDC GT SCH ×2 (09:41→21:00)
[2021-11-09] MEDS: PEG 400/HYPROMELLOSE/GLYCERIN 15 ML DROPS OP SCH ×4 (09:42→21:00)
[2021-11-09] MEDS: POTASSIUM CHLORIDE 20 MEQ/PKT PACKET PO SCH (09:42)
[2021-11-09] MEDS: PANTOPRAZOLE SODIUM 40 MG/VIAL (PROTONIX) IVP SCH (09:42)
[2021-11-09] MEDS: POLYETHYLENE GLYCOL 3350, 17 GM/ POWD.PACK PO SCH (09:43)
[2021-11-09] MEDS: CALCIUM CARBONATE/VITAMIN D3 1 TAB TABLET PO SCH ×2 (09:43→21:00)
[2021-11-09] MEDS: LISINOPRIL 10 MG TABLET (PRINIVIL) PO SCH (09:45)
[2021-11-09] MEDS: CHOLECALCIFEROL (VITAMIN D3) 2,000 UNIT TABLET PO SCH (09:45)
[2021-11-09] MEDS: hydrALAZINE HCL 20 MG/ML VIAL IVP PRN (10:08)
[2021-11-09] MEDS: MORPHINE 2 MG/ML INJ. SYRINGE IVP PRN (12:33)
[2021-11-09] MEDS: ACETAMINOPHEN 325 MG TABLET PO SCH (12:34)
[2021-11-09] MEDS: LATANOPROST 2.5 ML DROPS (XALATAN) OP SCH (21:00)
[2021-11-09] MEDS: ATORVASTATIN 20 MG TABLET PO SCH (21:00)
[2021-11-10] VITALS (35 sets, daily range): BP systolic 100–189
[2021-11-10] MEDS: PROPOFOL DRIP 100 ML IV PRN ×3 (02:51→22:37)
[2021-11-10 07:12] LABS: CALCIUM 9.6 mg/dL (8.4-11.0); CREATININE 0.56 mg/dL (0.55-1.30); POTASSIUM 4.3 mmol/L (3.5-5.1)
[2021-11-10 07:21] LABS: BASOPHILS # (AUTO) 0.1 K/uL (0.0-0.2); BASOPHILS % (AUTO) 0.7 % (0.0-2.0); EOSINOPHILS # (AUTO) 0.3 K/uL (0.0-0.4); EOSINOPHILS % (AUTO) 2.3 % (0.0-4.0); HEMATOCRIT 32.5 % (36-48); HEMOGLOBIN 10.4 g/dL (12.0-16.0); LYMPHOCYTES # (AUTO) 2.4 K/uL (1.0-5.5); MEAN CORPUSCULAR HEMOGLOBIN 29 pg (27-31); MEAN CORPUSCULAR HGB CONC 32 % (32-36); MEAN CORPUSCULAR VOLUME 91 fL (79.0-98.0); MONOCYTES % (AUTO) 6.3 % (1.7-9.3); NEUTROPHILS # (AUTO) 11.5 K/uL (1.8-7.7); NEUTROPHILS % (AUTO) 74.7 % (40.0-70.0); PLATELET COUNT (AUTO) 399 K/uL (130-430); RED BLOOD CELL COUNT(AUTO) 3.59 MIL/uL (4.2-6.2); WHITE BLOOD COUNT (AUTO) 15.3 K/uL (4.8-10.8)
[2021-11-10] MEDS: INSULIN GLARGINE 100 UNITS/ML 10 ML VIAL SUBCUT SCH ×2 (09:00→22:19)
[2021-11-10] MEDS: POTASSIUM CHLORIDE 20 MEQ/PKT PACKET PO SCH (09:04)
[2021-11-10] MEDS: POLYETHYLENE GLYCOL 3350, 17 GM/ POWD.PACK PO SCH (09:04)
[2021-11-10] MEDS: PANTOPRAZOLE SODIUM 40 MG/VIAL (PROTONIX) IVP SCH (09:05)
[2021-11-10] MEDS: HEPARIN SODIUM,PORCINE 5,000 UNITS/ML VIAL SUBCUT SCH ×2 (09:07→21:42)
[2021-11-10] MEDS: VALPROIC ACID ORAL SYRUP 250 MG/5 ML UDC GT SCH ×2 (09:09→21:36)
[2021-11-10] MEDS: LISINOPRIL 10 MG TABLET (PRINIVIL) PO SCH (09:11)
[2021-11-10] MEDS: CHOLECALCIFEROL (VITAMIN D3) 2,000 UNIT TABLET PO SCH (09:11)
[2021-11-10] MEDS: PEG 400/HYPROMELLOSE/GLYCERIN 15 ML DROPS OP SCH ×4 (09:16→21:00)
[2021-11-10] MEDS: CALCIUM CARBONATE/VITAMIN D3 1 TAB TABLET PO SCH ×2 (09:17→21:00)
[2021-11-10] MEDS: ASCORBIC ACID 500 MG TABLET PO SCH (09:18)
[2021-11-10] MEDS: MORPHINE 2 MG/ML INJ. SYRINGE IVP PRN ×2 (10:04→12:06)
[2021-11-10] MEDS: hydrALAZINE HCL 20 MG/ML VIAL IVP PRN (12:21)
[2021-11-10] MEDS: ACETAMINOPHEN 325 MG TABLET PO SCH ×2 (15:00→17:16)
[2021-11-10] MEDS: LATANOPROST 2.5 ML DROPS (XALATAN) OP SCH (21:00)
[2021-11-10] MEDS: ATORVASTATIN 20 MG TABLET PO SCH (21:37)
[2021-11-11] VITALS (34 sets, daily range): BP systolic 107–194
[2021-11-11] MEDS ORDERED: DOXYCYCLINE HYCLATE 100 MG CAPSULE ONE (01:11)
[2021-11-11] MEDS: DOXYCYCLINE HYCLATE 100 MG CAPSULE PO SCH ×3 (01:17→22:23)
[2021-11-11] MEDS ORDERED: PIPERACILLIN/TAZOBACTAM 4.5 GM/VIAL (ZOSYN) IV ONE (04:05)
[2021-11-11] MEDS: MORPHINE 2 MG/ML INJ. SYRINGE IVP PRN (04:30)
[2021-11-11] MEDS: metroNIDAZOLE 500 MG TABLET NG SCH ×3 (05:39→22:24)
[2021-11-11] MEDS ORDERED: metroNIDAZOLE 500 MG TABLET NG SCH (06:00)
[2021-11-11] MEDS: PIPERACILLIN/TAZO 4.5GM/DEX-IS 100 ML IV SCH ×3 (06:00→22:24)
[2021-11-11 06:23] LABS: HEMATOCRIT 32.2 % (36-48); HEMOGLOBIN 10.7 g/dL (12.0-16.0); MEAN CORPUSCULAR HEMOGLOBIN 30 pg (27-31); MEAN CORPUSCULAR HGB CONC 33 % (32-36); MEAN CORPUSCULAR VOLUME 90 fL (79.0-98.0); PLATELET COUNT (AUTO) 406 K/uL (130-430); RED BLOOD CELL COUNT(AUTO) 3.59 MIL/uL (4.2-6.2); RED CELL DISTRIBUTION WIDTH 16.1 % (9.0-15.0); WHITE BLOOD COUNT (AUTO) 15.5 K/uL (4.8-10.8)
[2021-11-11] MEDS: PROPOFOL DRIP 100 ML IV PRN ×3 (06:45→17:34)
[2021-11-11] MEDS: POLYETHYLENE GLYCOL 3350, 17 GM/ POWD.PACK PO SCH (07:39)
[2021-11-11 07:40] LABS: PROTHROMBIN TIME 9.8 SECS (9.5-12.5)
[2021-11-11 07:43] LABS: ALBUMIN 2.3 g/dL (3.4-4.8); CALCIUM 9.4 mg/dL (8.4-11.0); CREATININE 0.43 mg/dL (0.55-1.30); POTASSIUM 4.4 mmol/L (3.5-5.1); TOTAL BILIRUBIN 0.3 mg/dL (0.0-1.0)
[2021-11-11] MEDS: hydrALAZINE HCL 20 MG/ML VIAL IVP PRN ×2 (07:53→15:50)
[2021-11-11] MEDS: CHOLECALCIFEROL (VITAMIN D3) 2,000 UNIT TABLET PO SCH (09:05)
[2021-11-11] MEDS: POTASSIUM CHLORIDE 20 MEQ/PKT PACKET PO SCH (09:06)
[2021-11-11] MEDS: PANTOPRAZOLE SODIUM 40 MG/VIAL (PROTONIX) IVP SCH (09:06)
[2021-11-11] MEDS: VALPROIC ACID ORAL SYRUP 250 MG/5 ML UDC GT SCH ×2 (09:06→22:21)
[2021-11-11] MEDS: CALCIUM CARBONATE/VITAMIN D3 1 TAB TABLET PO SCH ×2 (09:06→22:20)
[2021-11-11] MEDS: ASCORBIC ACID 500 MG TABLET PO SCH (09:06)
[2021-11-11] MEDS: INSULIN GLARGINE 100 UNITS/ML 10 ML VIAL SUBCUT SCH ×2 (09:09→22:14)
[2021-11-11] MEDS: HEPARIN SODIUM,PORCINE 5,000 UNITS/ML VIAL SUBCUT SCH ×2 (09:10→22:18)
[2021-11-11] MEDS: PEG 400/HYPROMELLOSE/GLYCERIN 15 ML DROPS OP SCH ×4 (09:11→22:22)
[2021-11-11] MEDS: LISINOPRIL 10 MG TABLET (PRINIVIL) PO SCH (09:12)
[2021-11-11 09:36] LABS: BASOPHILS % (MANUAL) 0 % (0-2); EOSINOPHILS % (MANUAL) 4 % (0-7); LYMPHOCYTES % (MANUAL) 18 % (20-46); MONOCYTES % (MANUAL) 2 % (0-11)
[2021-11-11] MEDS: INSULIN REGULAR, HUMAN 100 UNITS/ML, 10 ML VIAL (humuLIN R) SUBCUT PRN ×2 (13:03→18:09)
[2021-11-11] MEDS ORDERED: INSULIN REGULAR, HUMAN 100 UNITS in NS 99 ML IV PRN ×2 (21:30)
[2021-11-11] MEDS: ATORVASTATIN 20 MG TABLET PO SCH (22:20)
[2021-11-11] MEDS: ACETAMINOPHEN 325 MG TABLET PO SCH (22:21)
[2021-11-11] MEDS: LATANOPROST 2.5 ML DROPS (XALATAN) OP SCH (22:23)
[2021-11-12] VITALS (37 sets, daily range): BP systolic 112–189
[2021-11-12] MEDS: INSULIN REGULAR, HUMAN 100 UNITS/ML, 10 ML VIAL (humuLIN R) SUBCUT PRN (00:39)
[2021-11-12] MEDS: PROPOFOL DRIP 100 ML IV PRN ×3 (00:44→23:22)
[2021-11-12 05:59] LABS: BASOPHILS # (AUTO) 0.1 K/uL (0.0-0.2); BASOPHILS % (AUTO) 0.9 % (0.0-2.0); EOSINOPHILS # (AUTO) 0.5 K/uL (0.0-0.4); EOSINOPHILS % (AUTO) 3.3 % (0.0-4.0); HEMATOCRIT 34.1 % (36-48); HEMOGLOBIN 10.9 g/dL (12.0-16.0); LYMPHOCYTES # (AUTO) 2.6 K/uL (1.0-5.5); LYMPHOCYTES % (AUTO) 18.8 % (20.5-51.5); MEAN CORPUSCULAR HEMOGLOBIN 29 pg (27-31); MEAN CORPUSCULAR HGB CONC 32 % (32-36); MEAN CORPUSCULAR VOLUME 90 fL (79.0-98.0); MONOCYTES # (AUTO) 0.7 K/uL (0.0-1.0); MONOCYTES % (AUTO) 4.8 % (1.7-9.3); NEUTROPHILS # (AUTO) 9.8 K/uL (1.8-7.7); NEUTROPHILS % (AUTO) 72.2 % (40.0-70.0); PLATELET COUNT (AUTO) 441 K/uL (130-430); RED BLOOD CELL COUNT(AUTO) 3.81 MIL/uL (4.2-6.2); RED CELL DISTRIBUTION WIDTH 16.3 % (9.0-15.0); WHITE BLOOD COUNT (AUTO) 13.6 K/uL (4.8-10.8)
[2021-11-12] MEDS: metroNIDAZOLE 500 MG TABLET NG SCH (06:00)
[2021-11-12 06:10] LABS: CALCIUM 10.2 mg/dL (8.4-11.0); CREATININE 0.38 mg/dL (0.55-1.30); POTASSIUM 3.7 mmol/L (3.5-5.1)
[2021-11-12] MEDS: PIPERACILLIN/TAZO 4.5GM/DEX-IS 100 ML IV SCH ×3 (06:53→21:30)
[2021-11-12] MEDS: HEPARIN SODIUM,PORCINE 5,000 UNITS/ML VIAL SUBCUT SCH ×2 (09:00→21:33)
[2021-11-12] MEDS: VALPROIC ACID ORAL SYRUP 250 MG/5 ML UDC GT SCH ×2 (09:32→21:29)
[2021-11-12] MEDS: PANTOPRAZOLE SODIUM 40 MG/VIAL (PROTONIX) IVP SCH (09:32)
[2021-11-12] MEDS: POLYETHYLENE GLYCOL 3350, 17 GM/ POWD.PACK PO SCH ×2 (09:33→09:51)
[2021-11-12] MEDS: POTASSIUM CHLORIDE 20 MEQ/PKT PACKET PO SCH (09:33)
[2021-11-12] MEDS: CALCIUM CARBONATE/VITAMIN D3 1 TAB TABLET PO SCH ×2 (09:34→21:29)
[2021-11-12] MEDS: DOXYCYCLINE HYCLATE 100 MG CAPSULE PO SCH ×2 (09:35→21:28)
[2021-11-12] MEDS: LISINOPRIL 10 MG TABLET (PRINIVIL) PO SCH (09:35)
[2021-11-12] MEDS: ASCORBIC ACID 500 MG TABLET PO SCH (09:36)
[2021-11-12] MEDS: INSULIN GLARGINE 100 UNITS/ML 10 ML VIAL SUBCUT SCH ×2 (09:52→21:00)
[2021-11-12] MEDS: PEG 400/HYPROMELLOSE/GLYCERIN 15 ML DROPS OP SCH ×4 (10:21→21:00)
[2021-11-12] MEDS: CHOLECALCIFEROL (VITAMIN D3) 2,000 UNIT TABLET PO SCH (10:21)
[2021-11-12] MEDS: hydrALAZINE HCL 20 MG/ML VIAL IVP PRN (11:45)
[2021-11-12] MEDS: HALOPERIDOL 5 MG TABLET (HALDOL) PO PRN (11:45)
[2021-11-12] MEDS ORDERED: SIMETHICONE 40 MG/0.6 ML ML ONE (12:01)
[2021-11-12] MEDS ORDERED: MEPERIDINE HCL/PF 25 MG/ML DISP.SYRIN ONE (12:01)
[2021-11-12] MEDS ORDERED: MIDAZOLAM HCL 5 MG/5 ML VIAL ONE (12:01)
[2021-11-12] MEDS: LATANOPROST 2.5 ML DROPS (XALATAN) OP SCH (21:00)
[2021-11-12] MEDS: ATORVASTATIN 20 MG TABLET PO SCH (21:29)
[2021-11-13] VITALS (41 sets, daily range): BP systolic 99–172
[2021-11-13] MEDS ORDERED: NS 500 ML IV ONE (01:00)
[2021-11-13] MEDS: hydrALAZINE HCL 20 MG/ML VIAL IVP PRN (02:48)
[2021-11-13] MEDS: PIPERACILLIN/TAZO 4.5GM/DEX-IS 100 ML IV SCH ×3 (05:46→22:15)
[2021-11-13] MEDS: PROPOFOL DRIP 100 ML IV PRN ×3 (05:48→17:38)
[2021-11-13 06:08] LABS: BASOPHILS # (AUTO) 0.1 K/uL (0.0-0.2); BASOPHILS % (AUTO) 0.8 % (0.0-2.0); EOSINOPHILS # (AUTO) 0.4 K/uL (0.0-0.4); HEMATOCRIT 33.9 % (36-48); HEMOGLOBIN 10.9 g/dL (12.0-16.0); LYMPHOCYTES # (AUTO) 2.4 K/uL (1.0-5.5); LYMPHOCYTES % (AUTO) 17.5 % (20.5-51.5); MEAN CORPUSCULAR HEMOGLOBIN 29 pg (27-31); MEAN CORPUSCULAR HGB CONC 32 % (32-36); MEAN CORPUSCULAR VOLUME 90 fL (79.0-98.0); MONOCYTES # (AUTO) 0.9 K/uL (0.0-1.0); MONOCYTES % (AUTO) 6.8 % (1.7-9.3); NEUTROPHILS # (AUTO) 9.9 K/uL (1.8-7.7); NEUTROPHILS % (AUTO) 71.9 % (40.0-70.0); PLATELET COUNT (AUTO) 457 K/uL (130-430); RED BLOOD CELL COUNT(AUTO) 3.79 MIL/uL (4.2-6.2); RED CELL DISTRIBUTION WIDTH 16.3 % (9.0-15.0); WHITE BLOOD COUNT (AUTO) 13.7 K/uL (4.8-10.8)
[2021-11-13 06:18] LABS: CALCIUM 8.9 mg/dL (8.4-11.0); CREATININE 0.31 mg/dL (0.55-1.30); POTASSIUM 3.4 mmol/L (3.5-5.1)
[2021-11-13 07:11] LABS: PROTHROMBIN TIME 9.8 SECS (9.5-12.5)
[2021-11-13] MEDS: INSULIN GLARGINE 100 UNITS/ML 10 ML VIAL SUBCUT SCH ×2 (09:00→22:17)
[2021-11-13] MEDS: HEPARIN SODIUM,PORCINE 5,000 UNITS/ML VIAL SUBCUT SCH ×3 (09:00→21:00)
[2021-11-13] MEDS: PEG 400/HYPROMELLOSE/GLYCERIN 15 ML DROPS OP SCH ×4 (10:00→22:16)
[2021-11-13] MEDS: PANTOPRAZOLE SODIUM 40 MG/VIAL (PROTONIX) IVP SCH (10:53)
[2021-11-13] MEDS: ASCORBIC ACID 500 MG TABLET PO SCH (10:54)
[2021-11-13] MEDS: CALCIUM CARBONATE/VITAMIN D3 1 TAB TABLET PO SCH ×2 (10:54→22:16)
[2021-11-13] MEDS: LISINOPRIL 10 MG TABLET (PRINIVIL) PO SCH (10:54)
[2021-11-13] MEDS: DOXYCYCLINE HYCLATE 100 MG CAPSULE PO SCH ×2 (10:54→22:15)
[2021-11-13] MEDS: CHOLECALCIFEROL (VITAMIN D3) 2,000 UNIT TABLET PO SCH (10:54)
[2021-11-13] MEDS: VALPROIC ACID ORAL SYRUP 250 MG/5 ML UDC GT SCH ×2 (10:54→22:15)
[2021-11-13] MEDS: POTASSIUM CHLORIDE 20 MEQ/PKT PACKET PO SCH (10:55)
[2021-11-13] MEDS ORDERED: SEVOFLURANE 15 MIN GAS INH ONE (15:45)
[2021-11-13] MEDS ORDERED: NS 1000 ML IV.SOLN IV ONE (15:45)
[2021-11-13] MEDS ORDERED: NS IRRIG SOLN 1000 ML IR ONE (15:45)
[2021-11-13] MEDS ORDERED: LIDOCAINE 1% 10 MG/ML, 20 ML MDV ONE (15:45)
[2021-11-13] MEDS ORDERED: ROCURONIUM BROMIDE 10 MG/ML (ZEMURON) ONE (15:45)
[2021-11-13] MEDS: INSULIN REGULAR, HUMAN 100 UNITS/ML, 10 ML VIAL (humuLIN R) SUBCUT PRN (19:01)
[2021-11-13] MEDS ORDERED: POTASSIUM CHLORIDE 20 MEQ/PKT PACKET PO ONE (21:00)
[2021-11-13] MEDS: ATORVASTATIN 20 MG TABLET PO SCH (22:15)
[2021-11-13] MEDS: LATANOPROST 2.5 ML DROPS (XALATAN) OP SCH (22:16)
[2021-11-14] VITALS (37 sets, daily range): BP systolic 113–196
[2021-11-14] MEDS: PROPOFOL DRIP 100 ML IV PRN ×4 (00:53→19:13)
[2021-11-14] MEDS: INSULIN REGULAR, HUMAN 100 UNITS/ML, 10 ML VIAL (humuLIN R) SUBCUT PRN ×2 (00:54→17:47)
[2021-11-14 06:10] LABS: BASOPHILS # (AUTO) 0.1 K/uL (0.0-0.2); BASOPHILS % (AUTO) 0.6 % (0.0-2.0); EOSINOPHILS # (AUTO) 0.4 K/uL (0.0-0.4); EOSINOPHILS % (AUTO) 2.9 % (0.0-4.0); HEMATOCRIT 31.2 % (36-48); HEMOGLOBIN 10.2 g/dL (12.0-16.0); LYMPHOCYTES # (AUTO) 2.3 K/uL (1.0-5.5); LYMPHOCYTES % (AUTO) 15.8 % (20.5-51.5); MEAN CORPUSCULAR HEMOGLOBIN 29 pg (27-31); MEAN CORPUSCULAR HGB CONC 33 % (32-36); MEAN CORPUSCULAR VOLUME 89 fL (79.0-98.0); MONOCYTES % (AUTO) 6.8 % (1.7-9.3); NEUTROPHILS # (AUTO) 10.7 K/uL (1.8-7.7); PLATELET COUNT (AUTO) 446 K/uL (130-430); RED BLOOD CELL COUNT(AUTO) 3.52 MIL/uL (4.2-6.2); RED CELL DISTRIBUTION WIDTH 15.8 % (9.0-15.0); WHITE BLOOD COUNT (AUTO) 14.4 K/uL (4.8-10.8)
[2021-11-14] MEDS: hydrALAZINE HCL 20 MG/ML VIAL IVP PRN ×2 (06:14→15:56)
[2021-11-14] MEDS: PIPERACILLIN/TAZO 4.5GM/DEX-IS 100 ML IV SCH ×3 (06:14→21:03)
[2021-11-14 06:44] LABS: CREATININE 0.38 mg/dL (0.55-1.30); POTASSIUM 4.1 mmol/L (3.5-5.1)
[2021-11-14 07:42] LABS: NEUTROPHILS % (AUTO) 73.9 % (40.0-70.0)
[2021-11-14] MEDS: HEPARIN SODIUM,PORCINE 5,000 UNITS/ML VIAL SUBCUT SCH ×2 (08:59→20:57)
[2021-11-14] MEDS: INSULIN GLARGINE 100 UNITS/ML 10 ML VIAL SUBCUT SCH ×2 (09:00→22:03)
[2021-11-14] MEDS: DOXYCYCLINE HYCLATE 100 MG CAPSULE PO SCH ×2 (09:06→20:53)
[2021-11-14] MEDS: POLYETHYLENE GLYCOL 3350, 17 GM/ POWD.PACK PO SCH (09:07)
[2021-11-14] MEDS: LISINOPRIL 10 MG TABLET (PRINIVIL) PO SCH (09:07)
[2021-11-14] MEDS: POTASSIUM CHLORIDE 20 MEQ/PKT PACKET PO SCH (09:07)
[2021-11-14] MEDS: ASCORBIC ACID 500 MG TABLET PO SCH (09:08)
[2021-11-14] MEDS: CALCIUM CARBONATE/VITAMIN D3 1 TAB TABLET PO SCH ×2 (09:08→20:55)
[2021-11-14] MEDS: PANTOPRAZOLE SODIUM 40 MG/VIAL (PROTONIX) IVP SCH (09:08)
[2021-11-14] MEDS: VALPROIC ACID ORAL SYRUP 250 MG/5 ML UDC GT SCH ×2 (09:08→20:55)
[2021-11-14] MEDS: CHOLECALCIFEROL (VITAMIN D3) 2,000 UNIT TABLET PO SCH (09:08)
[2021-11-14] MEDS: PEG 400/HYPROMELLOSE/GLYCERIN 15 ML DROPS OP SCH ×4 (09:09→20:55)
[2021-11-14] MEDS ORDERED: METOCLOPRAMIDE HCL 10 MG/2 ML VIAL IVP PRN (15:15)
[2021-11-14] MEDS ORDERED: ONDANSETRON HCL 4 MG/2 ML VIAL IVP PRN (15:15)
[2021-11-14] MEDS ORDERED: fentaNYL CITRATE/PF 100 MCG/2 ML AMP IVP PRN ×2 (15:15)
[2021-11-14] MEDS: ATORVASTATIN 20 MG TABLET PO SCH (20:53)
[2021-11-14] MEDS: LATANOPROST 2.5 ML DROPS (XALATAN) OP SCH (20:56)
[2021-11-15] VITALS (36 sets, daily range): BP systolic 104–178
[2021-11-15] MEDS: PROPOFOL DRIP 100 ML IV PRN ×3 (02:54→21:52)
[2021-11-15] MEDS: hydrALAZINE HCL 20 MG/ML VIAL IVP PRN ×2 (03:22→14:38)
[2021-11-15] MEDS: PIPERACILLIN/TAZO 4.5GM/DEX-IS 100 ML IV SCH ×3 (05:32→21:36)
[2021-11-15 06:56] LABS: BASOPHILS # (AUTO) 0.2 K/uL (0.0-0.2); EOSINOPHILS # (AUTO) 0.6 K/uL (0.0-0.4); HEMATOCRIT 33.5 % (36-48); HEMOGLOBIN 11.2 g/dL (12.0-16.0); LYMPHOCYTES # (AUTO) 2.3 K/uL (1.0-5.5); LYMPHOCYTES % (AUTO) 15.1 % (20.5-51.5); MEAN CORPUSCULAR HEMOGLOBIN 30 pg (27-31); MEAN CORPUSCULAR HGB CONC 34 % (32-36); MEAN CORPUSCULAR VOLUME 89 fL (79.0-98.0); MONOCYTES # (AUTO) 0.8 K/uL (0.0-1.0); MONOCYTES % (AUTO) 5.6 % (1.7-9.3); NEUTROPHILS # (AUTO) 11.2 K/uL (1.8-7.7); NEUTROPHILS % (AUTO) 74.3 % (40.0-70.0); PLATELET COUNT (AUTO) 569 K/uL (130-430); RED BLOOD CELL COUNT(AUTO) 3.78 MIL/uL (4.2-6.2); RED CELL DISTRIBUTION WIDTH 15.9 % (9.0-15.0); WHITE BLOOD COUNT (AUTO) 15.1 K/uL (4.8-10.8)
[2021-11-15] MEDS: POLYETHYLENE GLYCOL 3350, 17 GM/ POWD.PACK PO SCH (09:04)
[2021-11-15] MEDS: LISINOPRIL 10 MG TABLET (PRINIVIL) PO SCH (09:05)
[2021-11-15] MEDS: CHOLECALCIFEROL (VITAMIN D3) 2,000 UNIT TABLET PO SCH (09:05)
[2021-11-15] MEDS: DOCUSATE SODIUM 100 MG CAPSULE PO PRN (09:05)
[2021-11-15] MEDS: DOXYCYCLINE HYCLATE 100 MG CAPSULE PO SCH ×2 (09:05→21:25)
[2021-11-15] MEDS: POTASSIUM CHLORIDE 20 MEQ/PKT PACKET PO SCH (09:06)
[2021-11-15] MEDS: BISACODYL 10 MG/SUPPOSITORY RC PRN (09:06)
[2021-11-15] MEDS: PANTOPRAZOLE SODIUM 40 MG/VIAL (PROTONIX) IVP SCH (09:06)
[2021-11-15] MEDS: ASCORBIC ACID 500 MG TABLET PO SCH (09:06)
[2021-11-15] MEDS: HEPARIN SODIUM,PORCINE 5,000 UNITS/ML VIAL SUBCUT SCH ×2 (09:08→21:51)
[2021-11-15] MEDS: INSULIN GLARGINE 100 UNITS/ML 10 ML VIAL SUBCUT SCH ×2 (09:12→21:51)
[2021-11-15] MEDS: PEG 400/HYPROMELLOSE/GLYCERIN 15 ML DROPS OP SCH ×4 (09:14→21:24)
[2021-11-15] MEDS: CALCIUM CARBONATE/VITAMIN D3 1 TAB TABLET PO SCH ×2 (09:16→21:25)
[2021-11-15] MEDS: VALPROIC ACID ORAL SYRUP 250 MG/5 ML UDC GT SCH ×2 (09:16→21:24)
[2021-11-15] MEDS: INSULIN REGULAR, HUMAN 100 UNITS/ML, 10 ML VIAL (humuLIN R) SUBCUT PRN ×2 (11:28→17:49)
[2021-11-15] MEDS: ATORVASTATIN 20 MG TABLET PO SCH (21:24)
[2021-11-15] MEDS: LATANOPROST 2.5 ML DROPS (XALATAN) OP SCH (21:24)
[2021-11-15] MEDS: ACETAMINOPHEN 325 MG TABLET PO SCH (21:47)
[2021-11-16] VITALS (35 sets, daily range): BP systolic 121–182
[2021-11-16] MEDS: INSULIN REGULAR, HUMAN 100 UNITS/ML, 10 ML VIAL (humuLIN R) SUBCUT PRN ×5 (00:29→23:23)
[2021-11-16] MEDS: hydrALAZINE HCL 20 MG/ML VIAL IVP PRN ×2 (02:11→14:41)
[2021-11-16] MEDS: PIPERACILLIN/TAZO 4.5GM/DEX-IS 100 ML IV SCH ×3 (06:47→21:43)
[2021-11-16 07:30] LABS: HEMATOCRIT 31.6 % (36-48); HEMOGLOBIN 10.2 g/dL (12.0-16.0); MEAN CORPUSCULAR HEMOGLOBIN 29 pg (27-31); MEAN CORPUSCULAR HGB CONC 32 % (32-36); MEAN CORPUSCULAR VOLUME 88 fL (79.0-98.0); PLATELET COUNT (AUTO) 499 K/uL (130-430); RED BLOOD CELL COUNT(AUTO) 3.57 MIL/uL (4.2-6.2); RED CELL DISTRIBUTION WIDTH 16.4 % (9.0-15.0); WHITE BLOOD COUNT (AUTO) 12.4 K/uL (4.8-10.8)
[2021-11-16 07:52] LABS: ALBUMIN 2.1 g/dL (3.4-4.8); CALCIUM 9.1 mg/dL (8.4-11.0); CREATININE 0.38 mg/dL (0.55-1.30); PHOSPHORUS 3.4 mg/dL (2.7-4.5); POTASSIUM 3.6 mmol/L (3.5-5.1); TOTAL BILIRUBIN 0.1 mg/dL (0.0-1.0)
[2021-11-16] MEDS: CALCIUM CARBONATE/VITAMIN D3 1 TAB TABLET PO SCH ×2 (08:47→20:09)
[2021-11-16] MEDS: CHOLECALCIFEROL (VITAMIN D3) 2,000 UNIT TABLET PO SCH (08:48)
[2021-11-16] MEDS: VALPROIC ACID ORAL SYRUP 250 MG/5 ML UDC GT SCH ×2 (08:48→20:09)
[2021-11-16] MEDS: ASCORBIC ACID 500 MG TABLET PO SCH (08:49)
[2021-11-16] MEDS: LISINOPRIL 10 MG TABLET (PRINIVIL) PO SCH (08:49)
[2021-11-16] MEDS: POTASSIUM CHLORIDE 20 MEQ/PKT PACKET PO SCH (08:49)
[2021-11-16] MEDS: PANTOPRAZOLE SODIUM 40 MG/VIAL (PROTONIX) IVP SCH (08:50)
[2021-11-16] MEDS: DOXYCYCLINE HYCLATE 100 MG CAPSULE PO SCH ×2 (08:50→20:08)
[2021-11-16] MEDS: HEPARIN SODIUM,PORCINE 5,000 UNITS/ML VIAL SUBCUT SCH ×2 (08:51→20:11)
[2021-11-16] MEDS: PEG 400/HYPROMELLOSE/GLYCERIN 15 ML DROPS OP SCH ×4 (08:54→20:12)
[2021-11-16] MEDS: INSULIN GLARGINE 100 UNITS/ML 10 ML VIAL SUBCUT SCH ×2 (08:54→20:12)
[2021-11-16] MEDS: POLYETHYLENE GLYCOL 3350, 17 GM/ POWD.PACK PO SCH (08:55)
[2021-11-16 10:59] LABS: ATYPICAL LYMPHOCYTES % 1 % (0-0); BAND % (MANUAL) 2 % (0-6); BASOPHILS % (MANUAL) 0 % (0-2); EOSINOPHILS % (MANUAL) 0 % (0-7); LYMPHOCYTES % (MANUAL) 17 % (20-46); METAMYELOCYTES % 2 % (0-0); MONOCYTES % (MANUAL) 9 % (0-11)
[2021-11-16] MEDS: PROPOFOL DRIP 100 ML IV PRN ×2 (12:36→19:56)
[2021-11-16] MEDS: ATORVASTATIN 20 MG TABLET PO SCH (20:08)
[2021-11-16] MEDS: LATANOPROST 2.5 ML DROPS (XALATAN) OP SCH (20:12)
[2021-11-17] VITALS (31 sets, daily range): BP systolic 104–166
[2021-11-17] MEDS: PROPOFOL DRIP 100 ML IV SCH ×2 (04:07→13:58)
[2021-11-17] MEDS: PIPERACILLIN/TAZO 4.5GM/DEX-IS 100 ML IV SCH ×3 (06:28→21:13)
[2021-11-17] MEDS: INSULIN REGULAR, HUMAN 100 UNITS/ML, 10 ML VIAL (humuLIN R) SUBCUT PRN ×2 (06:38→11:16)
[2021-11-17 06:47] LABS: BASOPHILS # (AUTO) 0.1 K/uL (0.0-0.2); BASOPHILS % (AUTO) 0.8 % (0.0-2.0); EOSINOPHILS # (AUTO) 0.2 K/uL (0.0-0.4); EOSINOPHILS % (AUTO) 1.8 % (0.0-4.0); HEMATOCRIT 30.6 % (36-48); HEMOGLOBIN 10.1 g/dL (12.0-16.0); LYMPHOCYTES # (AUTO) 2.8 K/uL (1.0-5.5); LYMPHOCYTES % (AUTO) 22.7 % (20.5-51.5); MEAN CORPUSCULAR HEMOGLOBIN 29 pg (27-31); MEAN CORPUSCULAR HGB CONC 33 % (32-36); MEAN CORPUSCULAR VOLUME 88 fL (79.0-98.0); MONOCYTES # (AUTO) 0.8 K/uL (0.0-1.0); MONOCYTES % (AUTO) 6.8 % (1.7-9.3); NEUTROPHILS # (AUTO) 8.4 K/uL (1.8-7.7); PLATELET COUNT (AUTO) 522 K/uL (130-430); RED BLOOD CELL COUNT(AUTO) 3.47 MIL/uL (4.2-6.2); RED CELL DISTRIBUTION WIDTH 15.9 % (9.0-15.0); WHITE BLOOD COUNT (AUTO) 12.3 K/uL (4.8-10.8)
[2021-11-17 07:47] LABS: CALCIUM 9.1 mg/dL (8.4-11.0); CREATININE 0.41 mg/dL (0.55-1.30); PHOSPHORUS 3.4 mg/dL (2.7-4.5); POTASSIUM 4.2 mmol/L (3.5-5.1); TOTAL BILIRUBIN 0.1 mg/dL (0.0-1.0)
[2021-11-17 07:54] LABS: NEUTROPHILS % (AUTO) 67.9 % (40.0-70.0)
[2021-11-17] MEDS: ASCORBIC ACID 500 MG TABLET PO SCH (08:19)
[2021-11-17] MEDS: POLYETHYLENE GLYCOL 3350, 17 GM/ POWD.PACK PO SCH (08:19)
[2021-11-17] MEDS: POTASSIUM CHLORIDE 20 MEQ/PKT PACKET PO SCH (08:19)
[2021-11-17] MEDS: HALOPERIDOL 5 MG TABLET (HALDOL) PO PRN (08:19)
[2021-11-17] MEDS: PANTOPRAZOLE SODIUM 40 MG/VIAL (PROTONIX) IVP SCH (08:20)
[2021-11-17] MEDS: LISINOPRIL 10 MG TABLET (PRINIVIL) PO SCH (08:21)
[2021-11-17] MEDS: DOXYCYCLINE HYCLATE 100 MG CAPSULE PO SCH (08:21)
[2021-11-17] MEDS: HEPARIN SODIUM,PORCINE 5,000 UNITS/ML VIAL SUBCUT SCH ×2 (08:22→20:52)
[2021-11-17] MEDS: INSULIN GLARGINE 100 UNITS/ML 10 ML VIAL SUBCUT SCH ×2 (08:24→20:50)
[2021-11-17] MEDS: PEG 400/HYPROMELLOSE/GLYCERIN 15 ML DROPS OP SCH ×4 (08:34→20:45)
[2021-11-17] MEDS: VALPROIC ACID ORAL SYRUP 250 MG/5 ML UDC GT SCH ×2 (08:34→20:44)
[2021-11-17] MEDS: CALCIUM CARBONATE/VITAMIN D3 1 TAB TABLET PO SCH ×2 (08:35→20:44)
[2021-11-17] MEDS: CHOLECALCIFEROL (VITAMIN D3) 2,000 UNIT TABLET PO SCH (08:39)
[2021-11-17] MEDS: MORPHINE 4 MG INJ. 4 MG/ML VIAL IVP PRN (13:14)
[2021-11-17] MEDS: ATORVASTATIN 20 MG TABLET PO SCH (20:44)
[2021-11-17] MEDS: LATANOPROST 2.5 ML DROPS (XALATAN) OP SCH (20:45)
[2021-11-17] MEDS: hydrALAZINE HCL 20 MG/ML VIAL IVP PRN (22:01)
[2021-11-18] VITALS (40 sets, daily range): BP systolic 85–153
[2021-11-18] MEDS: PROPOFOL DRIP 100 ML IV SCH (01:02)
[2021-11-18] MEDS: PIPERACILLIN/TAZO 4.5GM/DEX-IS 100 ML IV SCH ×3 (05:54→21:08)
[2021-11-18 06:12] LABS: BASOPHILS # (AUTO) 0.1 K/uL (0.0-0.2); BASOPHILS % (AUTO) 0.7 % (0.0-2.0); EOSINOPHILS # (AUTO) 0.4 K/uL (0.0-0.4); EOSINOPHILS % (AUTO) 3.2 % (0.0-4.0); HEMATOCRIT 29.9 % (36-48); HEMOGLOBIN 9.8 g/dL (12.0-16.0); LYMPHOCYTES # (AUTO) 2.2 K/uL (1.0-5.5); LYMPHOCYTES % (AUTO) 17.7 % (20.5-51.5); MEAN CORPUSCULAR HEMOGLOBIN 29 pg (27-31); MEAN CORPUSCULAR HGB CONC 33 % (32-36); MEAN CORPUSCULAR VOLUME 89 fL (79.0-98.0); MONOCYTES # (AUTO) 0.8 K/uL (0.0-1.0); MONOCYTES % (AUTO) 6.6 % (1.7-9.3); NEUTROPHILS # (AUTO) 8.8 K/uL (1.8-7.7); PLATELET COUNT (AUTO) 514 K/uL (130-430); RED BLOOD CELL COUNT(AUTO) 3.38 MIL/uL (4.2-6.2); RED CELL DISTRIBUTION WIDTH 15.7 % (9.0-15.0); WHITE BLOOD COUNT (AUTO) 12.2 K/uL (4.8-10.8)
[2021-11-18 06:30] LABS: ALBUMIN 2.2 g/dL (3.4-4.8); CALCIUM 8.9 mg/dL (8.4-11.0); CREATININE 0.32 mg/dL (0.55-1.30); POTASSIUM 4.5 mmol/L (3.5-5.1); TOTAL BILIRUBIN 0.1 mg/dL (0.0-1.0)
[2021-11-18 07:44] LABS: NEUTROPHILS % (AUTO) 71.8 % (40.0-70.0)
[2021-11-18] MEDS: INSULIN GLARGINE 100 UNITS/ML 10 ML VIAL SUBCUT SCH ×2 (09:00→20:51)
[2021-11-18] MEDS: PEG 400/HYPROMELLOSE/GLYCERIN 15 ML DROPS OP SCH ×4 (09:30→20:49)
[2021-11-18] MEDS: CALCIUM CARBONATE/VITAMIN D3 1 TAB TABLET PO SCH ×2 (09:30→20:49)
[2021-11-18] MEDS: CHOLECALCIFEROL (VITAMIN D3) 2,000 UNIT TABLET PO SCH (10:56)
[2021-11-18] MEDS: POLYETHYLENE GLYCOL 3350, 17 GM/ POWD.PACK PO SCH (10:56)
[2021-11-18] MEDS: ASCORBIC ACID 500 MG TABLET PO SCH (10:57)
[2021-11-18] MEDS: POTASSIUM CHLORIDE 20 MEQ/PKT PACKET PO SCH (10:57)
[2021-11-18] MEDS: LISINOPRIL 10 MG TABLET (PRINIVIL) PO SCH (10:58)
[2021-11-18] MEDS: PANTOPRAZOLE SODIUM 40 MG/VIAL (PROTONIX) IVP SCH (10:58)
[2021-11-18] MEDS: HALOPERIDOL 5 MG TABLET (HALDOL) PO PRN (10:58)
[2021-11-18] MEDS: HEPARIN SODIUM,PORCINE 5,000 UNITS/ML VIAL SUBCUT SCH ×2 (11:00→20:50)
[2021-11-18] MEDS: VALPROIC ACID ORAL SYRUP 250 MG/5 ML UDC GT SCH ×2 (11:19→20:48)
[2021-11-18] MEDS: INSULIN REGULAR, HUMAN 100 UNITS/ML, 10 ML VIAL (humuLIN R) SUBCUT PRN (13:50)
[2021-11-18] MEDS: MORPHINE 4 MG INJ. 4 MG/ML VIAL IVP PRN (15:53)
[2021-11-18] MEDS: ATORVASTATIN 20 MG TABLET PO SCH (20:49)
[2021-11-18] MEDS: LATANOPROST 2.5 ML DROPS (XALATAN) OP SCH (20:49)
[2021-11-18] MEDS: DEXMEDETOMIDINE HCL 400 MCG in NS 96 ML IV PRN (21:11)
[2021-11-19] VITALS (34 sets, daily range): BP systolic 99–149
[2021-11-19] MEDS: INSULIN REGULAR, HUMAN 100 UNITS/ML, 10 ML VIAL (humuLIN R) SUBCUT PRN ×3 (00:36→12:39)
[2021-11-19] MEDS: PIPERACILLIN/TAZO 4.5GM/DEX-IS 100 ML IV SCH ×3 (05:33→21:28)
[2021-11-19 05:43] LABS: BASOPHILS # (AUTO) 0.1 K/uL (0.0-0.2); BASOPHILS % (AUTO) 0.5 % (0.0-2.0); EOSINOPHILS # (AUTO) 0.2 K/uL (0.0-0.4); EOSINOPHILS % (AUTO) 1.7 % (0.0-4.0); HEMOGLOBIN 9.9 g/dL (12.0-16.0); LYMPHOCYTES # (AUTO) 2.5 K/uL (1.0-5.5); LYMPHOCYTES % (AUTO) 17.5 % (20.5-51.5); MEAN CORPUSCULAR HEMOGLOBIN 29 pg (27-31); MEAN CORPUSCULAR HGB CONC 33 % (32-36); MEAN CORPUSCULAR VOLUME 88 fL (79.0-98.0); MONOCYTES # (AUTO) 0.8 K/uL (0.0-1.0); MONOCYTES % (AUTO) 5.7 % (1.7-9.3); NEUTROPHILS # (AUTO) 10.8 K/uL (1.8-7.7); NEUTROPHILS % (AUTO) 74.6 % (40.0-70.0); PLATELET COUNT (AUTO) 525 K/uL (130-430); RED BLOOD CELL COUNT(AUTO) 3.42 MIL/uL (4.2-6.2); RED CELL DISTRIBUTION WIDTH 15.9 % (9.0-15.0); WHITE BLOOD COUNT (AUTO) 14.5 K/uL (4.8-10.8)
[2021-11-19 06:31] LABS: CALCIUM 9.7 mg/dL (8.4-11.0); CREATININE 0.53 mg/dL (0.55-1.30); POTASSIUM 4.5 mmol/L (3.5-5.1)
[2021-11-19] MEDS: LISINOPRIL 10 MG TABLET (PRINIVIL) PO SCH (09:00)
[2021-11-19] MEDS: VALPROIC ACID ORAL SYRUP 250 MG/5 ML UDC GT SCH ×2 (09:28→21:27)
[2021-11-19] MEDS: CHOLECALCIFEROL (VITAMIN D3) 2,000 UNIT TABLET PO SCH (09:29)
[2021-11-19] MEDS: CALCIUM CARBONATE/VITAMIN D3 1 TAB TABLET PO SCH ×2 (09:29→21:31)
[2021-11-19] MEDS: ASCORBIC ACID 500 MG TABLET PO SCH (09:35)
[2021-11-19] MEDS: INSULIN GLARGINE 100 UNITS/ML 10 ML VIAL SUBCUT SCH ×2 (09:39→21:35)
[2021-11-19] MEDS: PEG 400/HYPROMELLOSE/GLYCERIN 15 ML DROPS OP SCH ×4 (09:40→21:30)
[2021-11-19] MEDS: PANTOPRAZOLE SODIUM 40 MG/VIAL (PROTONIX) IVP SCH (09:40)
[2021-11-19] MEDS: HEPARIN SODIUM,PORCINE 5,000 UNITS/ML VIAL SUBCUT SCH ×2 (09:40→21:33)
[2021-11-19] MEDS: POLYETHYLENE GLYCOL 3350, 17 GM/ POWD.PACK PO SCH (09:40)
[2021-11-19] MEDS: DEXMEDETOMIDINE HCL 400 MCG in NS 96 ML IV PRN (16:22)
[2021-11-19] MEDS: PROPOFOL DRIP 100 ML IV SCH (19:10)
[2021-11-19] MEDS: ATORVASTATIN 20 MG TABLET PO SCH (21:29)
[2021-11-19] MEDS: LATANOPROST 2.5 ML DROPS (XALATAN) OP SCH (21:31)
[2021-11-20] VITALS (37 sets, daily range): BP systolic 111–171
[2021-11-20] MEDS: INSULIN REGULAR, HUMAN 100 UNITS/ML, 10 ML VIAL (humuLIN R) SUBCUT PRN ×2 (00:29→11:31)
[2021-11-20] MEDS: PIPERACILLIN/TAZO 4.5GM/DEX-IS 100 ML IV SCH ×2 (06:18→13:39)
[2021-11-20] MEDS: DEXMEDETOMIDINE HCL 400 MCG in NS 96 ML IV PRN (08:19)
[2021-11-20] MEDS: VALPROIC ACID ORAL SYRUP 250 MG/5 ML UDC GT SCH ×2 (08:51→21:21)
[2021-11-20] MEDS: PANTOPRAZOLE SODIUM 40 MG/VIAL (PROTONIX) IVP SCH (08:51)
[2021-11-20] MEDS: CALCIUM CARBONATE/VITAMIN D3 1 TAB TABLET PO SCH ×2 (08:51→21:20)
[2021-11-20] MEDS: CHOLECALCIFEROL (VITAMIN D3) 2,000 UNIT TABLET PO SCH (08:52)
[2021-11-20] MEDS: ASCORBIC ACID 500 MG TABLET PO SCH (08:52)
[2021-11-20] MEDS: HEPARIN SODIUM,PORCINE 5,000 UNITS/ML VIAL SUBCUT SCH ×2 (08:53→21:15)
[2021-11-20] MEDS: POLYETHYLENE GLYCOL 3350, 17 GM/ POWD.PACK PO SCH (08:54)
[2021-11-20] MEDS: LISINOPRIL 10 MG TABLET (PRINIVIL) PO SCH (08:54)
[2021-11-20] MEDS: PEG 400/HYPROMELLOSE/GLYCERIN 15 ML DROPS OP SCH ×4 (08:55→21:22)
[2021-11-20] MEDS: INSULIN GLARGINE 100 UNITS/ML 10 ML VIAL SUBCUT SCH ×2 (09:03→21:14)
[2021-11-20] MEDS: ATORVASTATIN 20 MG TABLET PO SCH (21:20)
[2021-11-20] MEDS: QUEtiapine FUMARATE 100 MG TABLET PO SCH (21:21)
[2021-11-20] MEDS: ACETAMINOPHEN 325 MG TABLET PO SCH (21:21)
[2021-11-20] MEDS: LATANOPROST 2.5 ML DROPS (XALATAN) OP SCH (21:22)
[2021-11-21] VITALS (38 sets, daily range): BP systolic 91–180
[2021-11-21] MEDS: DEXMEDETOMIDINE HCL 400 MCG in NS 96 ML IV PRN (00:01)
[2021-11-21] MEDS ORDERED: MORPHINE 2 MG/ML INJ. SYRINGE ONE (01:05)
[2021-11-21 07:17] LABS: CALCIUM 9.4 mg/dL (8.4-11.0); CREATININE 0.39 mg/dL (0.55-1.30); POTASSIUM 3.3 mmol/L (3.5-5.1)
[2021-11-21 07:55] LABS: BASOPHILS # (AUTO) 0.1 K/uL (0.0-0.2); BASOPHILS % (AUTO) 1.1 % (0.0-2.0); EOSINOPHILS # (AUTO) 0.1 K/uL (0.0-0.4); EOSINOPHILS % (AUTO) 1.2 % (0.0-4.0); HEMOGLOBIN 8.7 g/dL (12.0-16.0); LYMPHOCYTES # (AUTO) 2.8 K/uL (1.0-5.5); MEAN CORPUSCULAR HEMOGLOBIN 29 pg (27-31); MEAN CORPUSCULAR HGB CONC 32 % (32-36); MEAN CORPUSCULAR VOLUME 88 fL (79.0-98.0); MONOCYTES # (AUTO) 0.8 K/uL (0.0-1.0); MONOCYTES % (AUTO) 7.1 % (1.7-9.3); NEUTROPHILS # (AUTO) 7.4 K/uL (1.8-7.7); NEUTROPHILS % (AUTO) 65.6 % (40.0-70.0); PLATELET COUNT (AUTO) 396 K/uL (130-430); RED BLOOD CELL COUNT(AUTO) 3.06 MIL/uL (4.2-6.2); RED CELL DISTRIBUTION WIDTH 15.7 % (9.0-15.0); WHITE BLOOD COUNT (AUTO) 11.2 K/uL (4.8-10.8)
[2021-11-21] MEDS: POLYETHYLENE GLYCOL 3350, 17 GM/ POWD.PACK PO SCH (09:00)
[2021-11-21] MEDS: ASCORBIC ACID 500 MG TABLET PO SCH (09:21)
[2021-11-21] MEDS: PANTOPRAZOLE SODIUM 40 MG/VIAL (PROTONIX) IVP SCH (09:21)
[2021-11-21] MEDS: CALCIUM CARBONATE/VITAMIN D3 1 TAB TABLET PO SCH ×2 (09:21→22:40)
[2021-11-21] MEDS: VALPROIC ACID ORAL SYRUP 250 MG/5 ML UDC GT SCH ×2 (09:21→22:33)
[2021-11-21] MEDS: CHOLECALCIFEROL (VITAMIN D3) 2,000 UNIT TABLET PO SCH (09:21)
[2021-11-21] MEDS: LISINOPRIL 10 MG TABLET (PRINIVIL) PO SCH (09:22)
[2021-11-21] MEDS: HEPARIN SODIUM,PORCINE 5,000 UNITS/ML VIAL SUBCUT SCH ×2 (09:23→22:36)
[2021-11-21] MEDS: PEG 400/HYPROMELLOSE/GLYCERIN 15 ML DROPS OP SCH ×4 (09:27→22:40)
[2021-11-21] MEDS: INSULIN GLARGINE 100 UNITS/ML 10 ML VIAL SUBCUT SCH (09:29)
[2021-11-21] MEDS ORDERED: POTASSIUM CHLORIDE 20 MEQ/PKT PACKET PO SCH (16:30)
[2021-11-21] MEDS ORDERED: POTASSIUM CHLORIDE 20 MEQ/PKT PACKET PO ONE (17:15)
[2021-11-21] MEDS ORDERED: DEXTROSE 50% JECT 50 ML DISP.SYRIN IVP ONE (18:15)
[2021-11-21] MEDS ORDERED: DEXTROSE 50% JECT 50 ML DISP.SYRIN ONE (18:24)
[2021-11-21] MEDS ORDERED: EPINEPHrine HCL 1 MG/ML VIAL ONE (19:17)
[2021-11-21] MEDS ORDERED: INSULIN GLARGINE 100 UNITS/ML 10 ML VIAL SUBCUT SCH (21:00)
[2021-11-21] MEDS: ACETAMINOPHEN 325 MG TABLET PO SCH (22:33)
[2021-11-21] MEDS: ATORVASTATIN 20 MG TABLET PO SCH (22:34)
[2021-11-21] MEDS: QUEtiapine FUMARATE 100 MG TABLET PO SCH (22:34)
[2021-11-21] MEDS: LATANOPROST 2.5 ML DROPS (XALATAN) OP SCH (22:40)
[2021-11-22] VITALS (24 sets, daily range): BP systolic 119–193
[2021-11-22 07:05] LABS: CALCIUM 8.9 mg/dL (8.4-11.0); CREATININE 0.41 mg/dL (0.55-1.30); POTASSIUM 3.7 mmol/L (3.5-5.1)
[2021-11-22] MEDS: POTASSIUM CHLORIDE 20 MEQ/PKT PACKET PO SCH (08:11)
[2021-11-22] MEDS: POLYETHYLENE GLYCOL 3350, 17 GM/ POWD.PACK PO SCH (08:11)
[2021-11-22] MEDS: VALPROIC ACID ORAL SYRUP 250 MG/5 ML UDC GT SCH ×2 (08:11→21:13)
[2021-11-22] MEDS: PANTOPRAZOLE SODIUM 40 MG/VIAL (PROTONIX) IVP SCH (08:12)
[2021-11-22] MEDS: HEPARIN SODIUM,PORCINE 5,000 UNITS/ML VIAL SUBCUT SCH ×2 (08:13→21:12)
[2021-11-22] MEDS: LISINOPRIL 10 MG TABLET (PRINIVIL) PO SCH (08:14)
[2021-11-22] MEDS: ASCORBIC ACID 500 MG TABLET PO SCH (08:14)
[2021-11-22] MEDS: CHOLECALCIFEROL (VITAMIN D3) 2,000 UNIT TABLET PO SCH (08:14)
[2021-11-22] MEDS: CALCIUM CARBONATE/VITAMIN D3 1 TAB TABLET PO SCH ×2 (08:17→21:10)
[2021-11-22] MEDS: PEG 400/HYPROMELLOSE/GLYCERIN 15 ML DROPS OP SCH ×4 (08:18→21:14)
[2021-11-22] MEDS: PROPOFOL DRIP 100 ML IV SCH (11:38)
[2021-11-22] MEDS ORDERED: LORazepam 2 MG/ML VIAL ONE (12:27)
[2021-11-22] MEDS: INSULIN REGULAR, HUMAN 100 UNITS/ML, 10 ML VIAL (humuLIN R) SUBCUT PRN (17:16)
[2021-11-22] MEDS: LORazepam 2 MG/ML VIAL IM PRN ×2 (17:20→21:23)
[2021-11-22] MEDS: ATORVASTATIN 20 MG TABLET PO SCH (21:11)
[2021-11-22] MEDS: QUEtiapine FUMARATE 100 MG TABLET PO SCH (21:13)
[2021-11-22] MEDS: LATANOPROST 2.5 ML DROPS (XALATAN) OP SCH (21:14)
[2021-11-23 00:01] VITALS: BP_SYST 118
[2021-11-23] MEDS: INSULIN REGULAR, HUMAN 100 UNITS/ML, 10 ML VIAL (humuLIN R) SUBCUT PRN ×4 (01:04→18:17)
[2021-11-23] MEDS: LORazepam 2 MG/ML VIAL IM PRN (05:26)
[2021-11-23 07:19] LABS: BASOPHILS # (AUTO) 0.1 K/uL (0.0-0.2); BASOPHILS % (AUTO) 1.1 % (0.0-2.0); EOSINOPHILS # (AUTO) 0.3 K/uL (0.0-0.4); EOSINOPHILS % (AUTO) 2.9 % (0.0-4.0); HEMATOCRIT 28.5 % (36-48); HEMOGLOBIN 9.4 g/dL (12.0-16.0); LYMPHOCYTES # (AUTO) 2.1 K/uL (1.0-5.5); LYMPHOCYTES % (AUTO) 19.8 % (20.5-51.5); MEAN CORPUSCULAR HEMOGLOBIN 29 pg (27-31); MEAN CORPUSCULAR HGB CONC 33 % (32-36); MEAN CORPUSCULAR VOLUME 88 fL (79.0-98.0); MONOCYTES # (AUTO) 0.7 K/uL (0.0-1.0); MONOCYTES % (AUTO) 7.2 % (1.7-9.3); NEUTROPHILS # (AUTO) 7.2 K/uL (1.8-7.7); PLATELET COUNT (AUTO) 369 K/uL (130-430); RED BLOOD CELL COUNT(AUTO) 3.22 MIL/uL (4.2-6.2); RED CELL DISTRIBUTION WIDTH 16.1 % (9.0-15.0); WHITE BLOOD COUNT (AUTO) 10.4 K/uL (4.8-10.8)
[2021-11-23 08:00] VITALS: BP_SYST 138
[2021-11-23] MEDS: POTASSIUM CHLORIDE 20 MEQ/PKT PACKET PO SCH (08:33)
[2021-11-23] MEDS: CHOLECALCIFEROL (VITAMIN D3) 2,000 UNIT TABLET PO SCH (08:33)
[2021-11-23] MEDS: PEG 400/HYPROMELLOSE/GLYCERIN 15 ML DROPS OP SCH ×4 (08:33→21:38)
[2021-11-23] MEDS: VALPROIC ACID ORAL SYRUP 250 MG/5 ML UDC GT SCH ×2 (08:33→21:45)
[2021-11-23] MEDS: CALCIUM CARBONATE/VITAMIN D3 1 TAB TABLET PO SCH ×2 (08:34→21:31)
[2021-11-23] MEDS: ASCORBIC ACID 500 MG TABLET PO SCH (08:34)
[2021-11-23] MEDS: LISINOPRIL 10 MG TABLET (PRINIVIL) PO SCH (08:35)
[2021-11-23] MEDS: HEPARIN SODIUM,PORCINE 5,000 UNITS/ML VIAL SUBCUT SCH ×2 (08:40→21:36)
[2021-11-23] MEDS: POLYETHYLENE GLYCOL 3350, 17 GM/ POWD.PACK PO SCH (09:00)
[2021-11-23] MEDS: PANTOPRAZOLE SODIUM 40 MG/VIAL (PROTONIX) IVP SCH (09:24)
[2021-11-23 11:24] VITALS: BP_SYST 132
[2021-11-23 15:27] VITALS: BP_SYST 134
[2021-11-23 20:00] VITALS: BP_SYST 119
[2021-11-23] MEDS: ATORVASTATIN 20 MG TABLET PO SCH (21:30)
[2021-11-23] MEDS: QUEtiapine FUMARATE 100 MG TABLET PO SCH (21:31)
[2021-11-23] MEDS: LATANOPROST 2.5 ML DROPS (XALATAN) OP SCH (21:45)
[2021-11-23] MEDS: INSULIN GLARGINE 100 UNITS/ML 10 ML VIAL SUBCUT SCH (22:33)
[2021-11-24] VITALS (8 sets, daily range): BP systolic 114–166
[2021-11-24] MEDS: INSULIN REGULAR, HUMAN 100 UNITS/ML, 10 ML VIAL (humuLIN R) SUBCUT PRN ×4 (00:22→17:13)
[2021-11-24 07:34] LABS: BASOPHILS # (AUTO) 0.1 K/uL (0.0-0.2); BASOPHILS % (AUTO) 0.9 % (0.0-2.0); EOSINOPHILS # (AUTO) 0.2 K/uL (0.0-0.4); EOSINOPHILS % (AUTO) 2.2 % (0.0-4.0); HEMATOCRIT 27.7 % (36-48); HEMOGLOBIN 9.2 g/dL (12.0-16.0); LYMPHOCYTES # (AUTO) 1.8 K/uL (1.0-5.5); LYMPHOCYTES % (AUTO) 16.8 % (20.5-51.5); MEAN CORPUSCULAR HEMOGLOBIN 30 pg (27-31); MEAN CORPUSCULAR HGB CONC 33 % (32-36); MEAN CORPUSCULAR VOLUME 89 fL (79.0-98.0); MONOCYTES # (AUTO) 0.7 K/uL (0.0-1.0); MONOCYTES % (AUTO) 6.4 % (1.7-9.3); NEUTROPHILS % (AUTO) 73.7 % (40.0-70.0); PLATELET COUNT (AUTO) 374 K/uL (130-430); RED BLOOD CELL COUNT(AUTO) 3.13 MIL/uL (4.2-6.2); RED CELL DISTRIBUTION WIDTH 16.7 % (9.0-15.0); WHITE BLOOD COUNT (AUTO) 10.9 K/uL (4.8-10.8)
[2021-11-24 08:13] LABS: CALCIUM 9.3 mg/dL (8.4-11.0); CREATININE 0.49 mg/dL (0.55-1.30); POTASSIUM 4.3 mmol/L (3.5-5.1)
[2021-11-24] MEDS: CALCIUM CARBONATE/VITAMIN D3 1 TAB TABLET PO SCH ×2 (09:03→23:37)
[2021-11-24] MEDS: POLYETHYLENE GLYCOL 3350, 17 GM/ POWD.PACK PO SCH (09:03)
[2021-11-24] MEDS: VALPROIC ACID ORAL SYRUP 250 MG/5 ML UDC GT SCH ×2 (09:03→23:38)
[2021-11-24] MEDS: POTASSIUM CHLORIDE 20 MEQ/PKT PACKET PO SCH (09:03)
[2021-11-24] MEDS: ASCORBIC ACID 500 MG TABLET PO SCH (09:04)
[2021-11-24] MEDS: CHOLECALCIFEROL (VITAMIN D3) 2,000 UNIT TABLET PO SCH (09:04)
[2021-11-24] MEDS: LISINOPRIL 10 MG TABLET (PRINIVIL) PO SCH (09:04)
[2021-11-24] MEDS: HEPARIN SODIUM,PORCINE 5,000 UNITS/ML VIAL SUBCUT SCH ×2 (09:06→23:44)
[2021-11-24] MEDS: PEG 400/HYPROMELLOSE/GLYCERIN 15 ML DROPS OP SCH ×3 (09:07→17:10)
[2021-11-24] MEDS: PANTOPRAZOLE SODIUM 40 MG/VIAL (PROTONIX) IVP SCH (09:35)
[2021-11-24] MEDS: cloNIDine HCL 0.1 MG TABLET PO PRN (21:11)
[2021-11-24] MEDS: ATORVASTATIN 20 MG TABLET PO SCH (23:45)
[2021-11-24] MEDS: INSULIN GLARGINE 100 UNITS/ML 10 ML VIAL SUBCUT SCH (23:45)
[2021-11-24] MEDS: QUEtiapine FUMARATE 100 MG TABLET PO SCH (23:49)
[2021-11-25 01:08] VITALS: BP_SYST 113
[2021-11-25] MEDS: LORazepam 2 MG/ML VIAL IM PRN (03:28)
[2021-11-25] MEDS: LATANOPROST 2.5 ML DROPS (XALATAN) OP SCH ×2 (03:35→21:40)
[2021-11-25] MEDS: PEG 400/HYPROMELLOSE/GLYCERIN 15 ML DROPS OP SCH ×5 (03:35→21:39)
[2021-11-25] MEDS: VALPROIC ACID ORAL SYRUP 250 MG/5 ML UDC GT SCH ×2 (08:51→21:41)
[2021-11-25] MEDS: PANTOPRAZOLE SODIUM 40 MG/VIAL (PROTONIX) IVP SCH (08:53)
[2021-11-25] MEDS: POLYETHYLENE GLYCOL 3350, 17 GM/ POWD.PACK PO SCH (09:02)
[2021-11-25] MEDS: POTASSIUM CHLORIDE 20 MEQ/PKT PACKET PO SCH (09:02)
[2021-11-25] MEDS: CALCIUM CARBONATE/VITAMIN D3 1 TAB TABLET PO SCH ×2 (09:03→21:39)
[2021-11-25] MEDS: LISINOPRIL 10 MG TABLET (PRINIVIL) PO SCH (09:09)
[2021-11-25] MEDS: ASCORBIC ACID 500 MG TABLET PO SCH (09:11)
[2021-11-25] MEDS: CHOLECALCIFEROL (VITAMIN D3) 2,000 UNIT TABLET PO SCH (09:11)
[2021-11-25] MEDS: HEPARIN SODIUM,PORCINE 5,000 UNITS/ML VIAL SUBCUT SCH ×2 (09:26→21:54)
[2021-11-25 11:20] VITALS: BP_SYST 148
[2021-11-25 15:15] VITALS: BP_SYST 110
[2021-11-25 15:33] VITALS: BP_SYST 137
[2021-11-25 20:00] VITALS: BP_SYST 147
[2021-11-25] MEDS ORDERED: INSULIN GLARGINE 100 UNITS/ML 10 ML VIAL SUBCUT SCH (21:00)
[2021-11-25] MEDS: QUEtiapine FUMARATE 100 MG TABLET PO SCH (21:38)
[2021-11-25] MEDS: ATORVASTATIN 20 MG TABLET PO SCH (21:39)
[2021-11-25] MEDS: INSULIN REGULAR, HUMAN 100 UNITS/ML, 10 ML VIAL (humuLIN R) SUBCUT PRN (21:53)
[2021-11-26 00:28] VITALS: BP_SYST 132
[2021-11-26] MEDS: INSULIN REGULAR, HUMAN 100 UNITS/ML, 10 ML VIAL (humuLIN R) SUBCUT PRN ×2 (06:35→10:24)
[2021-11-26] MEDS: CHOLECALCIFEROL (VITAMIN D3) 2,000 UNIT TABLET PO SCH (09:00)
[2021-11-26] MEDS: PEG 400/HYPROMELLOSE/GLYCERIN 15 ML DROPS OP SCH (09:00)
[2021-11-26] MEDS: VALPROIC ACID ORAL SYRUP 250 MG/5 ML UDC GT SCH (09:00)
[2021-11-26] MEDS: HEPARIN SODIUM,PORCINE 5,000 UNITS/ML VIAL SUBCUT SCH (09:00)
[2021-11-26] MEDS: LORazepam 2 MG/ML VIAL IM PRN (09:34)
[2021-11-26] MEDS: PANTOPRAZOLE SODIUM 40 MG/VIAL (PROTONIX) IVP SCH (10:27)
[2021-11-26] MEDS: POTASSIUM CHLORIDE 20 MEQ/PKT PACKET PO SCH (10:29)
[2021-11-26] MEDS: POLYETHYLENE GLYCOL 3350, 17 GM/ POWD.PACK PO SCH (10:29)
[2021-11-26] MEDS: CALCIUM CARBONATE/VITAMIN D3 1 TAB TABLET PO SCH (10:29)
[2021-11-26] MEDS: ASCORBIC ACID 500 MG TABLET PO SCH (10:31)
== END 2021-11-26 17:31 | DRG 4 ==
LOC: SED 21:29 → STU 10-13 00:19 → SIC 10-16 19:17 → STU 11-22 19:29 → UNDODISIN 11-25 23:24
PROVIDERS: ADMIT Internal Medicine; ATTEND Internal Medicine
PROC: 5A09357 Assistance with Respiratory Ventilation, Less than 24 Consecutive Hours, Continuous Positive Airway Pressure (ICD-10-PCS; 2021-10-17)
PROC: 5A1955Z Respiratory Ventilation, Greater than 96 Consecutive Hours (ICD-10-PCS; principal; 2021-10-18)
PROC: 0BH17EZ Insertion of Endotracheal Airway into Trachea, Via Natural or Artificial Opening (ICD-10-PCS; 2021-10-18)
PROC: 02HV33Z Insertion of Infusion Device into Superior Vena Cava, Percutaneous Approach (ICD-10-PCS; 2021-10-18)
PROC: B548ZZA Ultrasonography of Superior Vena Cava, Guidance (ICD-10-PCS; 2021-10-18)
PROC: 0DH68UZ Insertion of Feeding Device into Stomach, Via Natural or Artificial Opening Endoscopic (ICD-10-PCS; 2021-10-23)
PROC: 0B110F4 Bypass Trachea to Cutaneous with Tracheostomy Device, Open Approach (ICD-10-PCS; 2021-11-14)
DX: A41.9 Sepsis, unspecified organism (principal); J69.0 Pneumonitis due to inhalation of food and vomit; G82.50 Quadriplegia, unspecified; J80 Acute respiratory distress syndrome; I26.99 Other pulmonary embolism without acute cor pulmonale; L03.116 Cellulitis of left lower limb; E87.2 Acidosis; G91.9 Hydrocephalus, unspecified; E22.2 Syndrome of inappropriate secretion of antidiuretic hormone; J44.0 Chronic obstructive pulmonary disease with (acute) lower respiratory infection; R47.01 Aphasia; Z99.11 Dependence on respirator [ventilator] status; N17.9 Acute kidney failure, unspecified; F03.90 Unspecified dementia, unspecified severity, without behavioral disturbance, psychotic disturbance, mood disturbance, and anxiety; F32.A Depression, unspecified; E78.5 Hyperlipidemia, unspecified; G40.909 Epilepsy, unspecified, not intractable, without status epilepticus; E55.9 Vitamin D deficiency, unspecified; F29 Unspecified psychosis not due to a substance or known physiological condition; D75.838 Other thrombocytosis; H54.8 Legal blindness, as defined in USA; R13.10 Dysphagia, unspecified; Z20.822 Contact with and (suspected) exposure to COVID-19; I12.9 Hypertensive chronic kidney disease with stage 1 through stage 4 chronic kidney disease, or unspecified chronic kidney disease; E11.22 Type 2 diabetes mellitus with diabetic chronic kidney disease; N18.9 Chronic kidney disease, unspecified; E11.65 Type 2 diabetes mellitus with hyperglycemia; R65.20 Severe sepsis without septic shock; Z79.4 Long term (current) use of insulin; Z79.899 Other long term (current) drug therapy; Z74.01 Bed confinement status
CPT/HCPCS: 36415; 36600; 43246; 71045; 80048; 80053; 80178; 80202; 81000; 82306; 82533; 82803-TC; 82962; 83036; 83605; 83735; 83880; 83930; 83935; 84100; 84302; 84443; 84550; 85007; 85025; 85027; 85610-TC; 85730-TC; 87040; 87070-TC; 87081; 87086; 87205-TC; 87230-TC; 89055; 93005; 93970; 94002; 94003; 94640; 94760; 96374; 96375; 96376; 99291; C9113; G0378; J0171; J0360; J1200; J1630; J1644; J1815; J1956; J2001; J2060; J2175; J2250; J2270; J2543; J2704; J3370; J3480; J7030; J7050; J7613

== ENCOUNTER 2023-09-18 18:40 | Emergency (ER) | payer OTHER, MEDICAID ==
[~2023-09-18] VITALS: Ht 157.5 cm; Wt 77.1 kg
[~2023-09-18 18:40] MED LIST changes: -ALPHAGAN1 OP; +ASCO500T20 PO; -BISA-79 RC; +BISA10SU61 RC; +CALC-939 PO; -CARB15DR OP; -CHLO1LIQ2 MC; +CHOL500013 PO; +DOCU-156 PO; -DORZ10DR10 EACH EYE; -LIP40 PO; +LIP80 PO; +LITH150C PO; +LORA-258 PO; -MELA3TAB41 PO; -ONDA4TAB5 PO; +POLY17PO4 PO; +QUET200T PO; +VALP250S3 PO; -VITS42.53 TP
[2023-09-18 18:49] VITALS: BP_SYST 152; PULSE 105; RESP 18; TEMP 98.3; O2SAT 98
[2023-09-18] MEDS ORDERED: LORazepam 2 MG/ML VIAL IM ONE (20:45)
[2023-09-18 21:33] LABS: HEMATOCRIT 38.5 % (36-48); HEMOGLOBIN 13.1 g/dL (12.0-16.0); MEAN CORPUSCULAR HEMOGLOBIN 33 pg (27-31); MEAN CORPUSCULAR HGB CONC 34 % (32-36); MEAN CORPUSCULAR VOLUME 97 fL (79.0-98.0); PLATELET COUNT (AUTO) 219 K/uL (130-430); RED BLOOD CELL COUNT(AUTO) 3.97 MIL/uL (4.2-6.2); RED CELL DISTRIBUTION WIDTH 13.8 % (9.0-15.0); WHITE BLOOD COUNT (AUTO) 15.2 K/uL (4.8-10.8)
[2023-09-18 21:41] LABS: BILIRUBIN,URINE NEGATIVE (NEGATIVE); BLOOD, URINE NEGATIVE (NEGATIVE); CLARITY/URINE CLEAR (CLEAR); COLOR,URINE YELLOW (YELLOW); GLUCOSE,URINE NEGATIVE (NEGATIVE); KETONES,URINE NEGATIVE (NEGATIVE); LEUKOCYTE ESTERASE ,URINE NEGATIVE (NEGATIVE); NITRITE, URINE NEGATIVE (NEGATIVE); PH,URINE 6.5 (5.0-8.0); PROTEIN URINE NEGATIVE (NEGATIVE); UROBILINOGEN,URINE 0.2 (0.2-1.0)
[2023-09-18 21:49] LABS: BAND % (MANUAL) 11 % (0-6); BASOPHILS % (MANUAL) 0 % (0-2); EOSINOPHILS % (MANUAL) 1 % (0-7); LYMPHOCYTES % (MANUAL) 11 % (20-46); METAMYELOCYTES % 3 % (0-0); MONOCYTES % (MANUAL) 10 % (0-11); PLATELET ESTIMATE ADEQUATE (ADEQUATE); STOMATOCYTES FEW
[2023-09-18 21:54] LABS: ALANINE AMINOTRANSFERASE 37 U/L (12-78); ALBUMIN 3.3 g/dL (3.4-4.8); ANION GAP 10 (5-15); ASPARTATE AMINOTRANSFERASE 25 U/L (10-37); BILIRUBIN,DIRECT 0.1 mg/dL (0.0-0.3); CALCIUM 9.8 mg/dL (8.4-11.0); CARBON DIOXIDE 27 mmol/L (23-29); CHLORIDE 96 mmol/L (98-107); CREATININE 0.91 mg/dL (0.55-1.30); GFR AFRICAN AMERICAN 82 mL/min (>90); GLUCOSE 137 mg/dL (74-106); POTASSIUM 4.5 mmol/L (3.5-5.1); SODIUM SERUM 133 mmol/L (136-145); TOTAL BILIRUBIN 0.2 mg/dL (0.0-1.0); TOTAL PROTEIN, SERUM 8.1 g/dL (6.4-8.3); UREA NITROGEN, BLOOD 24 mg/dL (8-21)
[2023-09-18 21:55] LABS: GFR NON AFRICAN-AMERICAN 68 mL/min (>90)
[2023-09-18] MEDS ORDERED: MORPHINE 4 MG INJ. 4 MG/ML VIAL IVP ONE (23:30)
[2023-09-19] MEDS ORDERED: cloNIDine HCL 0.1 MG TABLET PO ONE (00:30)
[2023-09-19 01:38] VITALS: BP_SYST 150; PULSE 98; RESP 20; TEMP 98.1; O2SAT 96
== END 2023-09-19 01:21 ==
LOC: SED 18:40
DX: Z04.3 Encounter for examination and observation following other accident (principal); S09.90XA Unspecified injury of head, initial encounter; E11.9 Type 2 diabetes mellitus without complications; I10 Essential (primary) hypertension; Z79.899 Other long term (current) drug therapy
CPT/HCPCS: 36415; 70450-TC; 71045; 80048; 80076; 81001; 81003; 84484; 85007; 85027; 93005; 99285

== ENCOUNTER 2024-01-31 12:38 | Emergency (ER) | payer OTHER, MEDICAID ==
[~2024-01-31] VITALS: Ht 149.9 cm; Wt 59.0 kg
[2024-01-31 13:02] VITALS: BP_SYST 117; PULSE 95; RESP 22; TEMP 98.3; O2SAT 98
[2024-01-31] MEDS ORDERED: CEFU250T85 PO (15:56)
[2024-01-31 17:35] VITALS: BP_SYST 163; PULSE 112; RESP 20; TEMP 96.9; O2SAT 94
== END 2024-01-31 17:35 | disposition home or self-care (01) ==
LOC: SED 12:38
DX: R09.89 Other specified symptoms and signs involving the circulatory and respiratory systems (principal); E11.9 Type 2 diabetes mellitus without complications; I10 Essential (primary) hypertension; E78.5 Hyperlipidemia, unspecified; Z79.4 Long term (current) use of insulin
CPT/HCPCS: 71045; 99283